=== PATIENT | female | born 1945 | race Caucasian/White ===

== ENCOUNTER → 2017-08-19 | Outpatient (CLI) | payer BC ==
[~2017-08-19] MED LIST: AMBIEN 10 MG TA10 MG PO; BENTYL 20 MG TA20 M1 PO; CARBIDOPA/LEVO1 EACH; CLONAZEPAM 1 MG1 M1 PO; COZAAR 25 MG TA25 M1 PO; DIOVAN160 MG PO; FLEXERIL; HYDROCHLOROTH12.5 M1 PO; LIPITOR 20 MG T20 M1 PO; MOBIC7.5 M1 PO; NORCO 5-325 TA1 EACH PO; NORVASC 5 MG TAB5 MG; NORVASC5 MG PO; PERCOCET 5-3251 EACH PO; PREDNISONE 10 M10 M1 PO; SINEMET 10-1001 EAC1 PO; SINEMET 25-1001 EAC1 PO; SINGULAIR 10 MG10 M1 PO; SPIRIVA18 MCG; SYMBICORT160 MCG/4.; SYMBICORT160 MCG/4. INH; ULTRAM 50MG TAB50 MG PO
== END ==
LOC: M.RAD 10:01
DX: J44.9 Chronic obstructive pulmonary disease, unspecified (principal); M41.84 Other forms of scoliosis, thoracic region

== ENCOUNTER → 2017-09-20 | Outpatient (CLI) | payer BC | LOC: M.CT 15:50 | DX: R22.31 Localized swelling, mass and lump, right upper limb (principal) ==

== ENCOUNTER → 2017-11-08 | Outpatient (CLI) | payer BC | LOC: M.RAD 11:36 | DX: M47.896 Other spondylosis, lumbar region (principal); M47.895 Other spondylosis, thoracolumbar region; M25.751 Osteophyte, right hip ==

== ENCOUNTER → 2017-11-27 | Outpatient (CLI) | payer BC ==
--- NOTE | 2017-11-28 09:37 | PAINCON ---
[address] [address] PAIN MANAGEMENT CONSULTATION Name: MAVISTATUMMALINDA L Room: [facility] ADELAIDA Darnell#: [id number] Admission: 11/27/17 Attend Phys: Spike Bird Discharge: Date of : 45 Report #: [id number] THIS REPORT FOR: //name// CC: Pranay Alegre DO Renny Gambino DATE OF SERVICE: 11/27/2017 The patient is a 72-year-old female seen in consultation at the request of Dr. Alegre for assistance with management of ongoing pain, low back, right greater than left, radiating in the posterior aspect of the leg down to the knee. She denies myelopathic symptoms, specifically a saddle anesthesia, bowel or bladder continence changes, paresthesia or weakness. She does have periodic sharp stabbing pain, she rates up to 9 on VAS. She notes the pain is exacerbated with quick movements. Gets some relief when she rests. Notes pain has been going on for greater than 8 weeks. She tried nonsteroidal anti-inflammatory medications with nominal efficacy (takes chronic meloxicam for neck pain). REVIEW OF SYSTEMS: Complete review of systems was attached to the chart, was gone over with the patient. She is . Quit smoking 20 years ago, has a 49-bfvg-pcnt smoking history. Does not drink alcohol to excess. History of COPD for which she uses Singulair and Symbicort, dyslipidemia for which she takes atorvastatin, hypertension treated with losartan and hydrochlorothiazide, hypothyroidism for which she takes levothyroxine. Restless legs syndrome, chronic pain and muscle spasm. She uses clonazepam ostensibly for muscle relaxation, tramadol for pain and carbidopa for restless legs syndrome. The patient had a brain aneurysm surgically repaired 25 years ago. Had a left first cervical rib resection at 16 years of age. Remaining review of systems is noncontributory. 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 Pain impact score averages 45/70. PHYSICAL EXAMINATION: Reveals a 5-foot 4-inch, 160-pound female, BMI is 29 kilograms per meter squared. Blood pressure 157/65, pulse 61, respirations are 16. Room air oxygen saturation 96%. Cranial nerves 2-12 are grossly intact. Pupils equal, react to light and accommodation. Extraocular muscles are intact. Cervical range of motion is full. Thyroid is modestly enlarged. Upper extremity strength is preserved. Heart is regular and rhythmical without murmur. Lungs are clear to auscultation. Abdomen is benign. Rises from chair using armrest, does have an antalgic gait. Lumbar flexion is good to 90 degrees. Tender in the low back from about L4 down. Tender over the bilateral SI joints. Modestly positive Diego test and modestly positive straight leg raise, all on the right. Lower extremity strength is symmetric. [place] [address] PAIN MANAGEMENT CONSULTATION Name: MAVISTATUMSAMMYMALINDA L Room: [facility] Mann#: [id number] Admission: 11/27/17 Attend Phys: Spike Bird Discharge: Date of : 45 Report #: [id number] DIAGNOSTIC STUDIES: X-rays of the lumbar spine from 11/08/2017 do note multilevel smje-cz-fnzukqjt degenerative disk space with mild retrolisthesis at T12 on L1, L1 on L2, L2 on L3. There is multilevel gosv-gc-iuxlpslo disk space loss T2 through L4. ASSESSMENT: Symptomatic lumbar radiculopathy by clinical exam and history, possible component of sacroiliac mediated pain. RECOMMENDATIONS: 1. We will seek authorization for epidural injection under fluoroscopy at next visit L5-S1. 2. Continue meloxicam. 3. May benefit from SI joint versus L5-S1 facet joint injections depending on clinical response to epidural injection. ASSESSMENT: Symptomatic lumbar radiculopathy, sacroiliac mediated pain, lumbar and lumbosacral spondylosis without myelopathy. <ELECTRONICALLY SIGNED> By: Renny Gambino DO 11/28/17 0937 1443 Miriam Gambino DO /nt
== END ==
LOC: M.PC 04:39
DX: M54.16 Radiculopathy, lumbar region (principal)

== ENCOUNTER → 2017-12-04 | Outpatient (CLI) | payer BC ==
--- NOTE | 2017-12-09 08:35 | PAINCON ---
[facility] [address] [place] [address] PAIN MANAGEMENT CONSULTATION Name: JACKELINMALINDA L Room: [facility] Mann#: [id number] Admission: 12/04/17 Attend Phys: Spike Bird Discharge: Date of : 45 Report #: [id number] THIS REPORT FOR: //name// CC: Pranay Gambino DATE OF SERVICE: 12/04/2017 PROCEDURE: Lumbar epidural injection under fluoroscopy. INDICATION: Symptomatic lumbar radiculopathy in a patient seen in consultation on 11/27/2017. We sought authorization for epidural injection today. She has ongoing axial back pain and lumbar radicular component. We elected to proceed with epidural injection at L5-S1 today. If this does not afford adequate relief, we can consider L5-S1 facet versus SI joint injections at that time. ASSESSMENT: Symptomatic lumbar radiculopathy. PROCEDURE NOTE: Lumbar epidural injection under fluoroscopy. PROCEDURE NOTE: After both written and informed consent to include risk of spinal cord damage, increased pain, weakness and dural puncture, the patient was taken to the fluoroscopy suite, placed in the prone position. After sterile prep and drape, a skin wheal with lidocaine was raised. A 22-gauge epidural Tuohy needle was inserted in the midline at L5-S1 with good loss to resistance. Negative aspiration for cerebrospinal fluid or blood was noted. Then 1 mL of Omnipaque under biplanar fluoroscopy showed good spread within the epidural space. This was followed with 80 mg of triamcinolone plus 1 mL of 1.5% preservative-free Xylocaine, 0.5 mL Xylocaine was then injected to flush the needle; it was removed. The patient was monitored for an appropriate period of time and discharged in good and stable condition. <ELECTRONICALLY SIGNED> By: Renny Gambino DO 12/09/17 0835 1324 [id number] Gambino DO /nt
== END | disposition home or self-care (01) ==
LOC: M.PC 03:04
DX: M54.16 Radiculopathy, lumbar region (principal); G89.29 Other chronic pain; I10 Essential (primary) hypertension; Z98.890 Other specified postprocedural states; Z79.899 Other long term (current) drug therapy; Z88.8 Allergy status to other drugs, medicaments and biological substances; Z90.49 Acquired absence of other specified parts of digestive tract

== ENCOUNTER → 2018-04-17 | Outpatient (CLI) | payer BC ==
--- NOTE | 2018-05-19 10:00 | PAINCON ---
[address] [address] PAIN MANAGEMENT CONSULTATION Name: JACKELINMALINDA L Room: [facility] ANIVAL Mann#: [id number] Admission: 04/17/18 Attend Phys: Tete Gomez MD Discharge: Date of : 45 Report #: [id number] THIS REPORT FOR: //name// CC: Tete Alegre DATE OF SERVICE: 04/17/2018 CHIEF COMPLAINT: Pain radiating down into the right leg. HISTORY OF PRESENT ILLNESS: The patient is a 72-year-old female who has been seen in the Pain Clinic by Dr. Renny Gambino. This is my first visit with the patient. She returns today indicating that she has had some success with an epidural steroid injection in the past. At this juncture, she has noted a return of her pain. Radiates from her low back down into the loop posterior portion of her right leg. She has had some bilateral pain and discomfort. Right leg is most problematic at this juncture. Notes that she received greater than 90% of pain relief after the last injection. Rates it as an 8/10. At this point, would like to proceed with another. Notes that the pain is worse with activity such as walking, sitting, and standing. Medication and massage have been helpful. ALLERGIES: CODEINE, DOXYCYCLINE, ZOLPIDEM, SLEEP WALKING, FLUTICASONE, ANY RASH. CURRENT MEDICATIONS: Lipitor 20 mg, Symbicort 160/45, Sinemet 10/100, clonazepam 1 mg, hydrochlorothiazide 12.5 mg, Cozaar 25 mg, Mobic 7.5 mg, Singulair 10 mg, Ultram 50 mg, and Ambien 10 mg. PAST SURGICAL HISTORY: Brain surgery 20 years ago 16 years ago, removal of cervical, back surgery, section. 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 REVIEW OF SYSTEMS: Generally good health, wears glasses, hearing loss, ringing in the ears, shortness of breath, heart trouble, shortness of breath while lying flat, asthma, wheezing, thyroid disease, and bruising easily. LABORATORY DATA: X-ray of lumbar spine dated 11/08/2017, there is minimal T12-L1, L1-L2, and L2-L3 retrolisthesis measuring 5 mm without change during flexion or extension. Curvature is normal. Vertebral body heights are normal. There are multilevel moderate/mild disk space loss throughout T12 through L1. There is multilevel mild endplate degeneration with small osteophytes. No acute fracture or subluxation. PAIN CLINIC ASSESSMENT: [place] [address] PAIN MANAGEMENT CONSULTATION Name: MALINDA BENÍTEZ Coty Room: [facility]#: [id number] Admission: 04/17/18 Attend Phys: Tete Gomez MD Discharge: Date of : 45 Report #: [id number] 1. The patient is not being treated for osteoarthritis. 2. The patient is not treated for rheumatoid arthritis. 3. Weight 166 pounds, BMI is 27.8. Again, the patient's height was 5 feet 4 inches. 4. Vital Signs: Blood pressure 140/81, heart rate 57, respiratory rate 16, room air saturation 98%, temperature 97.9. 5. Pain score 8/10. 6. Fall risk. The patient has not fallen in the last 3 months. 7. Blood thinner. The patient is not on a blood thinning medication. 8. Hypertension. The patient is being treated for hypertension. 9. Opiate therapy greater than 6 weeks. The patient is not on a chronic opioid medication, but does use Ultram. 10. Risk assessment tool. 11. Functional assessment tool. 12. Recreational drug use. The patient denies use of recreational drugs. 13. Tobacco: The patient denies use of tobacco at this juncture. 14. Alcohol. The patient denies frequent use of alcoholic beverages. PHYSICAL EXAMINATION: GENERAL: The patient is a well-developed, well-nourished white female appears her stated age. She is alert and oriented x 3. Affect is appropriate. Speech is fluent. HEENT: Normocephalic, atraumatic. Extraocular eye muscles intact. Sclerae nonicteric. Mucous membranes are moist. NECK: The patient's neck is without evidence of JVD or adenopathy. HEART: Regular rate. ABDOMEN: Nontender. EXTREMITIES: Upper extremity muscle strength is judged to be 4+/5 for the major muscle groups. Difficult to ascertain the patient's deep tendon reflexes secondary to a difficulty in compliance. MUSCULOSKELETAL: Without significant scoliosis, kyphosis or lordosis. The patient has pain and discomfort with pain radiating down in the L5-S1 dermatomal distribution, which is most problematic today. The patient raises from the chair with the use of her hands on the armrest. Does have an antalgic gait. Slow ambulation. Positive straight leg raise on the right. Lower extremity muscle strength is judged to be 5- for the major muscle groups in the lower extremity. IMPRESSION: 1. Multilevel mild/moderate degenerative disk space loss and endplate osteophytes. 2. Mild retrolisthesis at T12-L1, L1-L2, L2-L3 without change during flexion or extension. 3. Exacerbation of lumbar radiculopathy in the L5-S1 dermatomal distribution. 4. Rheumatic fever. 5. [place] [address] PAIN MANAGEMENT CONSULTATION Name: SAMMY BENÍTEZTRACY Ansari Room: [facility]#: [id number] Admission: 04/17/18 Attend Phys: Tete Gomez MD Discharge: Date of : 45 Report #: [id number] 6. Chronic obstructive lung disease. 7. Thyroid disease. 8. Joint disease/arthritis. 9. Irritable bowel syndrome. 10. Restless leg syndrome. RECOMMENDATIONS: We discussed treatment options with the patient. Risks and benefits of a lumbar epidural steroid injection were discussed. They could include but will not limited to infection, increased muscle soreness, headache, bleeding, worsening of pain, no improvement in pain and the patient elects to proceed. PROCEDURE NOTE: The patient was taken to the procedure area. She was assisted in getting on the examination table. Her back was sterilely prepped with a Betadine solution. Fluoroscopy using anterior, posterior as well as lateral imaging were instituted. The patient's back was sterilely prepped with Betadine. A midline approach with a right paraspinous direction of the needle was undertaken. A total of 80 mg Depo-Medrol, 40 mg triamcinolone and 2 mL of 0.25% bupivacaine was injected. The patient tolerated the procedure well. There were no complications. The patient's pain decreased to 5/10 at the time of discharge, down from 8/10. She had no complications. There was no bleeding. She will follow up in the future as needed. We would like to thank you for letting us participate in her care. We hope she continues to improve. <ELECTRONICALLY SIGNED> By: Tete Gomez MD 05/19/18 1000 [id number]. Dorian Gomez MD /nt
== END | disposition home or self-care (01) ==
LOC: M.PC 04:01
DX: M51.35 Other intervertebral disc degeneration, thoracolumbar region (principal); M43.15 Spondylolisthesis, thoracolumbar region; M25.78 Osteophyte, vertebrae; I10 Essential (primary) hypertension; J44.9 Chronic obstructive pulmonary disease, unspecified; E07.9 Disorder of thyroid, unspecified; M19.90 Unspecified osteoarthritis, unspecified site; G25.81 Restless legs syndrome; I00 Rheumatic fever without heart involvement; Z98.890 Other specified postprocedural states; Z79.899 Other long term (current) drug therapy; Z88.6 Allergy status to analgesic agent; Z88.8 Allergy status to other drugs, medicaments and biological substances

== ENCOUNTER → 2018-07-01 | Outpatient (CLI) | payer BC, MEDICARE ==
[2018-07-01 10:26] LABS: CREATININE 1.3 mg/dL (0.6-1.3)
== END ==
LOC: M.LAB 06-24 10:00 → M.CT 06-24 11:00 → M.LAB 09:59
DX: R06.02 Shortness of breath (principal); R10.9 Unspecified abdominal pain; I70.8 Atherosclerosis of other arteries; I77.1 Stricture of artery; M47.815 Spondylosis without myelopathy or radiculopathy, thoracolumbar region; Z88.5 Allergy status to narcotic agent; Z88.8 Allergy status to other drugs, medicaments and biological substances; I25.10 Atherosclerotic heart disease of native coronary artery without angina pectoris

== ENCOUNTER 2018-08-25 10:34 | Inpatient (IN) | payer BC, MEDICARE ==
[~2018-08-25] VITALS: Ht 162.6 cm; Wt 68.0 kg
[2018-08-25] MEDS ORDERED: SYNTHROID25 MC1 PO (13:29)
[2018-08-25 13:56] VITALS: BP 142/74
[2018-08-25 14:39] LABS: HEMATOCRIT 41.3 % (37.0-47.0); HEMOGLOBIN 13.9 gm/dL (12.0-15.0); MCH 31.3 pg (26.0-34.0); MCHC 33.5 g/dL (28.0-37.0); MCV 93.4 fL (80.0-100.0); MPV 7.7 fl. (7.2-11.1); RBC 4.43 mil/uL (4.20-5.00); RDW-CV 12.7 % (10.5-14.5); WBC 8.5 thou/uL (4.0-11.0)
[2018-08-25 14:56] LABS: ALBUMIN 3.6 g/dL (3.4-5.0); CREATININE 1.4 mg/dL (0.6-1.3); POTASSIUM 3.9 mmol/L (3.5-5.1); TOTAL BILIRUBIN 0.6 mg/dL (<0.1-1.0); TOTAL PROTEIN 7.2 g/dL (6.4-8.2)
--- NOTE | 2018-08-25 18:18 | NUR ---
ASSESSMENT COMPLETE. PT ADMITTED DIRECT ADMIT FROM DR VANESSA. PT HAS BEEN SOA FOR A COUPLE WEEKS, FAILED OUTPT TREATMENT. PT STARTED ON IV STEROIDS AND ABX. CXR COMPLETE. PT HAS IV PLACED BY INFUSIION IN RIGHT FA. PT REPORTS SOA WITH EXERTION PERSISTENT AND NON PROD DRY COUGH. PT STARTED ON SOFÍA PEARLS. PT IS ALERT AND ORIENTED X4. DENIES N/V. UP AD SERJIO. SEE ASSESSMENT AND VITALS FOR OTHER DETAILS. CALL LIGHT WITHIN REACH, WILL CONTINUE PLAN OF CARE.
[2018-08-25 21:00] VITALS: BP 156/53
--- NOTE | 2018-08-26 06:43 | NUR ---
PT STATES SHE SLEPT WELL. DENIES PAIN OR PROBLEMS THIS MORNING. ROOM AIR. UP AD SERJIO IN ROOM RFA SL, SOLUMEDROL GIVEN ORDERED. TESSALON PERLES GIVEN WITH GOOD RELIEF OF COUGH. AM LABS TO BE DRAWN. TO HAVE ECHO TODAY. AO X4 ABLE TO USE CALL LITE AND MAKE NEEDS KNOWN.
[2018-08-26 06:56] LABS: HEMATOCRIT 37.9 % (37.0-47.0); HEMOGLOBIN 12.8 gm/dL (12.0-15.0); MCH 31.2 pg (26.0-34.0); MCHC 33.9 g/dL (28.0-37.0); MCV 92.2 fL (80.0-100.0); MPV 7.6 fl. (7.2-11.1); NUCLEATED RBCS 0 /100WBC; PLATELET COUNT* 259 thou/uL (150-400); RBC 4.11 mil/uL (4.20-5.00); RDW-CV 12.5 % (10.5-14.5); WBC 7.8 thou/uL (4.0-11.0)
[2018-08-26 07:08] LABS: CALCIUM 9.1 mg/dL (8.5-10.1); CREATININE 1.5 mg/dL (0.6-1.3); POTASSIUM 4.4 mmol/L (3.5-5.1)
[2018-08-26 07:31] VITALS: BP 148/61
[2018-08-26 07:41] LABS: ABSOLUTE LYMPHOCYTES 1.4 thou/uL (0.8-5.3); ABSOLUTE MONOCYTES 0.2 thou/uL (0.0-1.2); ABSOLUTE NEUTROPHILS 6.2 thou/uL (1.6-8.1); METAMYELOCYTES 1 %; PLATELET ESTIMATE ADEQUATE
--- NOTE | 2018-08-26 14:46 | 2DMMODE ---
[place] [address] 2 D/M-MODE ECHOCARDIOGRAM Name: MALINDA BENÍTEZ Room: [address] IN [facility]#: [id number] Admission: 08/25/18 Attend Phys: Ramesh Castellanos, Discharge: Date of : 45 Date of Service: 08/26/18 1446 Report #: [id number] THIS REPORT FOR: //name// APPROVED REPORT Study performed: 08/26/2018 11:30:28 EXAM: Comprehensive 2D, Doppler, and color-flow Echocardiogram Patient Location: In-Patient Room #: [facility] Status: routine BSA: 1.73 HR: 58 bpm BP: 148/61 mmHg Rhythm: NSR Other Information Study Quality: Good Indications Dyspnea 2D Dimensions IVSd: 9.20 (7-11mm) LVOT Diam: 17.18 (18-24mm) LVDd: 40.23 mm PWd: 8.95 (7-11mm) LVDs: 20.67 (25-40mm) Aortic Root: 24.97 mm Volumes Left Atrial Volume (Systole) LA ESV Index: 22.30 mL/m2 Aortic Valve AoV Peak Onur.: 1.85 m/s AO Peak Gr.: 13.71 mmHg LVOT Max P.45 mmHg AO Mean Gr.: 8.53 mmHg LVOT Mean P.39 mmHg LVOT Max V: 1.62 m/s AO V2 VTI: 39.76 cm LVOT Mean V: 1.08 m/s SANTOS (VTI): 2.04 cm2 LVOT V1 VTI: 34.98 cm Mitral Valve E/A Ratio: 0.92 MV Decel. Time: 317.01 ms MV E Max Onur.: 0.77 m/[place] [address] 2 D/M-MODE ECHOCARDIOGRAM Name: MALINDA BENÍTEZ Room: [address] .R.#: [id number] Admission: 08/25/18 Attend Phys: Ramesh Castellanos, Discharge: Date of : 45 Date of Service: 08/26/18 1446 Report #: [id number] PHT: 91.93 ms MVA (PHT): 2.39 cm2 TDI E/Lateral E': 6.42 E/Medial E': 7.00 Medial E' Onur.: 0.11 m/s Lateral E' Onur.: 0.12 m/s Pulmonary Valve PV Peak Onur.: 1.28 m/s PV Peak Gr.: 6.59 mmHg Tricuspid Valve RAP Estimate: 5.00 mmHg TR Peak Gr.: 27.11 mmHg RVSP: 32.00 mmHg PA Pressure: 32.00 mmHg Left Ventricle The left ventricle is normal size. There is normal LV segmental wall motion. There is normal left ventricular wall thickness. Left ventricular systolic function is normal. The left ventricular ejection fraction is within the normal range. LVEF is 65-70%. The left ventricular diastolic function is normal. Right Ventricle The right ventricle is normal size. The right ventricular systolic function is normal. Atria The left atrium size is normal. The right atrium size is normal. Aortic Valve The aortic valve is normal in structure. No aortic regurgitation is present. There is no aortic valvular stenosis. Mitral Valve The mitral valve is normal in structure. There is no mitral valve regurgitation noted. No evidence of mitral valve stenosis. Tricuspid Valve The tricuspid valve is normal in structure. Trace tricuspid regurgitation. Mild pulmonary hypertension. Pulmonic Valve The pulmonary valve is normal in structure. There is no pulmonic [place] [address] 2 D/M-MODE ECHOCARDIOGRAM Name: MALINDA BENÍTEZ FLAQUITA Room: [address] IN [facility]#: [id number] Admission: 08/25/18 Attend Phys: Ramesh Castellanos, Discharge: Date of : 45 Date of Service: 08/26/18 1446 Report #: [id number] Great Vessels The aortic root is normal in size. IVC is normal in size and collapses >50% with inspiration. Pericardium There is no pericardial effusion. <Conclusion> Left ventricular systolic function is normal. The left ventricular ejection fraction is within the normal range. <ELECTRONICALLY SIGNED> By: Sawyer Hunt MD, [facility] 08/26/18 1446 1446 1446 Sawyer Hunt MD, FAC /INF
--- NOTE | 2018-08-26 16:12 | NUR ---
SW met with pt to complete initial assessment, introduce self, and SW role. Pt alert, oriented, pleasant. Pt lives at home with her who works outside the home. Pt is independent with mobility and ADLs. Pt did not express any dc needs at this time. SW to continue to follow.
--- NOTE | 2018-08-26 18:04 | NUR ---
ASSESSMENT COMPLETE. PT ALERT AND ORIENTED X4. PT REPORTS SHE FEELS MUCH BETTER TODAY. PT REPORTS COUGH AND SOA HAS IMPROVED. IV ROCEPHIN AND SOLUMEDROL GIVEN ORDERED. PT IS UP AD SERJIO. NO OTHER CONCERNS AT THIS TIME. SEE ASSESSMENT AND VITALS FOR OTHER DETAILS. CALL LIGHT WITHIN REACH, WILL CONTINUE PLAN OF CARE
[2018-08-26 18:07] VITALS: BP 165/64
[2018-08-26 22:45] VITALS: BP 158/60
--- NOTE | 2018-08-27 06:26 | NUR ---
PT SLEPT FAIRLY WELL OVERNIGHT. HAD COUGHING EPISODE AT HS, RT TX GIVEN AND SCHEDULED MEDS WITH FAIR RELIEF. RFA SL. ROOM AIR. MANUFACTURING LEAD COUGH PT STATES. NO LABS THIS MORNING. UP AD SERJIO IN ROOM. ABLE TO USE CALL LITE AND MAKE NEEDS KNOWN. PT HOPEFUL FOR DISCHARGE HOME IF NO FURTHER COUGHING EPISODES.
[2018-08-27 08:07] VITALS: BP 161/63
[2018-08-27] MEDS ORDERED: AUGMENTIN 875-1 EACH PO (13:46)
[2018-08-27] MEDS ORDERED: PREDNISONE 10 M10 MG PO (13:46)
[2018-08-27] MEDS ORDERED: TESSALON PERLE100 MG PO (13:53)
[2018-08-27 14:00] VITALS: BP 161/63
[2018-08-27 14:01] VITALS: BP 161/63
--- NOTE | 2018-08-27 14:20 | NUR ---
ASSESSMENT COMPLETE. PT ALERT AND ORIENTED X4. PT DENIES PAIN AND N/V. PT CONTINUES TO REPORT IMPROVEMENT IN COUGH AND SHORTNESS OF AIR. PT DISCHARGED HOME WITH PRESCRIPTIONS. DISCHARGE INSTRUCTIONS GIVEN, PT VERBALIZES UNDERSTANDING. IV TAKEN OUT WITHOUT ANY COMPLICATIONS. PT LEFT VIA WHEELCHAIR WITH NURSING STAFF TO PERSONAL VEHICLE.
[2018-08-27 14:27] VITALS: BP 161/63
== END 2018-08-27 14:10 | disposition home or self-care (01) | DRG 191 ==
LOC: M.3W 10:34
PROVIDERS: ADMIT Internal Medicine
DX: J44.0 Chronic obstructive pulmonary disease with (acute) lower respiratory infection (principal); N17.9 Acute kidney failure, unspecified; E87.1 Hypo-osmolality and hyponatremia; R06.03 Acute respiratory distress; J44.1 Chronic obstructive pulmonary disease with (acute) exacerbation; J20.9 Acute bronchitis, unspecified; I10 Essential (primary) hypertension; Z98.891 History of uterine scar from previous surgery; Z79.899 Other long term (current) drug therapy; Z88.5 Allergy status to narcotic agent

== ENCOUNTER → 2018-11-27 | Outpatient (CLI) | payer BC, MEDICARE ==
[~2018-11-27] MED LIST changes: +AUGMENTIN 875-1 EACH PO; +INHALER; +ONDANSETRON HCL4 M2 PO; +PREDNISONE 10 M10 MG PO; +SYNTHROID25 MC1 PO; +TESSALON PERLE100 MG PO
--- NOTE | ~2018-11-27 | PAINCON ---
[address] [address] PAIN MANAGEMENT CONSULTATION Name: JACKELINMALINDATRACY SAMS Room: [facility] ADELAIDA Darnell#: [id number] Admission: 11/27/18 Attend Phys: Tete Gomez MD Discharge: Date of : 45 Report #: [id number] THIS REPORT FOR: //name// CC: Tete Alegre DATE OF SERVICE: 11/27/2018 CHIEF COMPLAINT: Low back pain. HISTORY: The patient is a 73-year-old female who has been seen in the pain clinic in the past because of pain. She has had pain, which radiated down into her right leg. She has undergone epidural steroid injections. At this juncture, she is having pain that is equally causing the problem with both legs. She does feel that the left leg might be more problematic than the right. She is experiencing tingling sensation down in her leg involving her foot. She has undergone chiropractic treatment. She has had acupuncture treatment. Neither of these have been helpful for a prolonged period of time. She is also experiencing some sharp pains. Rates her pain as a 3/10. She has tried tramadol as well as other muscle relaxants. She has returned today for an epidural steroid injection. Claim gleaned greater than 50% improvement at the last injection. ALLERGIES: CODEINE, DOXYCYCLINE; ZOLPIDEM, IT CAUSE SLEEP WALKING; FLUTICASONE RASH. CURRENT MEDICATIONS: Augmentin daily, Lipitor 20 mg, Tessalon Perles 100 mg q. 6 hours p.r.n. cough; Sinemet 10/100 mg, restless leg; clonazepam, anxiety, 1 mg; Synthroid 25 mcg, Cozaar 25 mg, Mobic 7.5, Singulair 10 mg, tramadol 50 mg, Ambien 10 mg p.r.n. insomnia. PAIN CLINIC ASSESSMENT AND PQRS: 1. The patient is not being treated for osteoarthritis or rheumatoid arthritis. 2. She has had her left knee debrided. Height 5 feet 5 inches, weight 165 pounds, BMI is 27. 3. Vital Signs: Blood pressure 102/58, heart rate 66, respiratory rate 16, room air saturation 93%, temperature 98.0. 4. Pain intensity 3/10. The patient rates her pain as a 2 with no activity, 3 when walking and 10 with certain activities. 5. Fall history: The patient has not fallen in the last 3 months. 6. Blood thinner. The patient is not on a blood thinning medication. 7. Hypertension. The patient is being treated for hypertension. 8. Opioids greater than 6 weeks. The patient is not receiving with opioid medications greater than 6 weeks. 9. Risk assessment tool. 10. Functional assessment tool, [place] [address] PAIN MANAGEMENT CONSULTATION Name: MALINDA BENÍTEZ FLAQUITA Room: [facility]#: [id number] Admission: 11/27/18 Attend Phys: Tete Gomez MD Discharge: Date of : 45 Report #: [id number] 11. Recreational drug use. The patient denies use of recreational drugs. 12. Tobacco: The patient denies use of tobacco. 13. Alcohol: The patient drinks alcoholic beverages on occasion. PHYSICAL EXAMINATION: GENERAL: The patient is a well-developed, well-nourished white female. Appears her stated age. She is alert and oriented x 3. Her affect is appropriate. Speech is fluent. HEENT: Normocephalic, atraumatic. Extraocular eye muscles intact. Sclerae nonicteric. Mucous membranes are moist. NECK: Without adenopathy or JVD. HEART: Regular rate. ABDOMEN: Nontender. EXTREMITIES: Upper extremity muscle strength judged to be 4+/5 for the major muscle groups in the upper extremity. The patient without significant scoliosis, kyphosis or lordosis. Complains of pain that is radiating down into her leg in the L5-S1 dermatomal distribution. Risks and benefits of the procedure were discussed. They could include but are not limited to infection, worsening of pain, no improvement in pain, spinal headache, paralysis and the patient elects to undertake the procedure. PROCEDURE NOTE: The patient was taken to the procedure area. She was then assisted in getting on the examination table. Her back was sterilely prepped with a Betadine solution at the L5-S1 area. A 0.25% bupivacaine using a 25-gauge needle was then used to localize and numb the area. A 17-gauge Tuohy with loss of resistance technique was used to gain access to the epidural space. There was no CSF, heme or paresthesia. Total of 80 mg of Depo-Medrol, 40 mg of triamcinolone and 2 mL of 0.25% bupivacaine was injected. The patient tolerated the procedure well. There were no complications. She remained in the Pain Clinic for an appropriate amount of time. Pain decreased to 3 at the time of discharge. A total of 9 seconds of fluoroscopy time was used. She will follow up in the future as needed. We would like to thank you for letting us participate in her care. We hope she continues to improve. By: [id number]. Dorian Gomez MD /PMT
== END | disposition home or self-care (01) ==
LOC: M.PC 04:21
DX: M54.16 Radiculopathy, lumbar region (principal); G89.29 Other chronic pain; I10 Essential (primary) hypertension; J44.9 Chronic obstructive pulmonary disease, unspecified; F41.9 Anxiety disorder, unspecified; Z88.6 Allergy status to analgesic agent; Z88.8 Allergy status to other drugs, medicaments and biological substances; Z79.899 Other long term (current) drug therapy; Z98.890 Other specified postprocedural states

== ENCOUNTER 2018-12-01 17:13 | Emergency (ER) | payer BC, MEDICARE ==
[~2018-12-01] VITALS: Ht 162.6 cm; Wt 73.0 kg
[~2018-12-01 17:13] MED LIST changes: -INHALER; -ONDANSETRON HCL4 M2 PO
[2018-12-01] MEDS ORDERED: INHALER (17:25)
[2018-12-01 17:48] LABS: HEMATOCRIT 43.3 % (37.0-47.0); HEMOGLOBIN 14.8 gm/dL (12.0-15.0); MCH 31.1 pg (26.0-34.0); MCHC 34.2 g/dL (28.0-37.0); MPV 7.9 fl. (7.2-11.1); NUCLEATED RBCS 0 /100WBC; PLATELET COUNT* 235 thou/uL (150-400); RBC 4.76 mil/uL (4.20-5.00); RDW-CV 13.5 % (10.5-14.5); WBC 11.2 thou/uL (4.0-11.0)
[2018-12-01 18:06] LABS: ALBUMIN 3.8 g/dL (3.4-5.0); ALKALINE PHOSPHATASE 76 U/L (46-116); ANION GAP 6 mmol/L (7-16); BUN 32 mg/dL (7-18); CHLORIDE 104 mmol/L (98-107); CO2 31 mmol/L (21-32); CREATININE 1.3 mg/dL (0.6-1.3); GLUCOSE 102 mg/dL (70-99); LIPASE 272 U/L (73-393); POTASSIUM 3.9 mmol/L (3.5-5.1); SGOT 15 U/L (15-37); SGPT 17 U/L (30-65); SODIUM 141 mmol/L (136-145); TOTAL BILIRUBIN 0.8 mg/dL (<0.1-1.0); TOTAL PROTEIN 7.4 g/dL (6.4-8.2); TROPONIN-I LEVEL <0.06 ng/mL (<0.06)
[2018-12-01 18:16] LABS: ABSOLUTE LYMPHOCYTES 0.1 thou/uL (0.8-5.3); ABSOLUTE MONOCYTES 0.8 thou/uL (0.0-1.2); ABSOLUTE NEUTROPHILS 10.3 thou/uL (1.6-8.1); PLATELET ESTIMATE ADEQUATE
[2018-12-01] MEDS ORDERED: NORCO 5-325 TA1 EACH PO (19:03)
[2018-12-01] MEDS ORDERED: ONDANSETRON HCL4 M2 PO (19:03)
[2018-12-01 19:14] VITALS: BP 181/63
--- NOTE | 2018-12-02 10:40 | EKG ---
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
== END 2018-12-01 19:15 | disposition home or self-care (01) ==
LOC: M.ERS 17:13
PROVIDERS: Nurse Practitioner Family
DX: R10.10 Upper abdominal pain, unspecified (principal); R14.0 Abdominal distension (gaseous); J44.9 Chronic obstructive pulmonary disease, unspecified; I10 Essential (primary) hypertension; Z90.49 Acquired absence of other specified parts of digestive tract; Z98.890 Other specified postprocedural states; Z88.5 Allergy status to narcotic agent

== ENCOUNTER → 2019-03-03 | Outpatient (CLI) | payer BC, MEDICARE ==
[~2019-03-03] MED LIST changes: +INHALER; +ONDANSETRON HCL4 M2 PO
--- NOTE | ~2019-03-03 | PAINCON ---
[address] [address] PAIN MANAGEMENT CONSULTATION Name: JACKELINMALINDATRACY SAMS Room: [facility]Radha.#: [id number] Admission: 03/03/19 Attend Phys: Tete Gomez MD Discharge: Date of : 45 Report #: [id number] THIS REPORT FOR: //name// CC: Tete Alegre DATE OF SERVICE: 03/03/2019 CHIEF COMPLAINT: Low back pain with pain radiating down into the legs. HISTORY: The patient is a 73-year-old female who has been seen in the pain clinic because of lumbar radiculopathy. She returns today indicating that her pain has reoccurred. She has undergone epidural steroid injections and found them to be quite beneficial. She has returned today because of the recurrence of the pain and discomfort. She notes that she hurts in her hips as well as "everywhere." Has pain that is radiating down into the L5-S1 dermatomal distribution. She notes that her pain is bothersome. She even has pain when she is trying to roll over in bed. This wakes her. Walking, activities of daily living and bending can be problematic. ALLERGIES: CODEINE, DOXYCYCLINE, ZOLPIDEM -- it causes sleep walking, FLUTICASONE -- rash. MEDICATIONS: Augmentin, daily, Lipitor 20 mg, Tessalon Perles 100 mg q. 6 hours p.r.n. cough, Sinemet 10/100 mg, restless leg syndrome, clonazepam, anxiety 1 mg; Synthroid 25 mcg, Cozaar 25 mg, Mobic 7.5 mg, Singulair 10 mg, tramadol 50 mg, and Ambien 10 mg p.r.n. for insomnia. PAIN CLINIC ASSESSMENT/PQRS: 1. The patient has had her left knee debrided. She suffers from osteoarthritis. She is not being treated for rheumatoid arthritis. 2. Height 5 feet 5 inches, weight 161 pounds, BMI is 27.0. 3. VITAL SIGNS: Blood pressure 135/53, heart rate 63, respiratory rate 16, room air saturation 95%, temperature 97.9. 4. Pain intensity 8/10. 5. Fall history: The patient has not fallen in the last 3 months. 6. Blood thinner. The patient is not on a blood thinning medication. 7. Hypertension. The patient is being treated for hypertension. 8. Opioids greater than 6 weeks. The patient is not receiving opioid medications other than tramadol. 9. Risk assessment tool, low for opioid use. 10. Functional assessment tool. 11. Recreational drug use. The patient denies use of recreational drugs. 12. Tobacco: The patient denies use of tobacco. 13. Alcohol: The patient drinks alcoholic [place] [address] PAIN MANAGEMENT CONSULTATION Name: MALINDA BENÍTEZ FLAQUITA Room: [facility]#: [id number] Admission: 03/03/19 Attend Phys: Tete Gomez MD Discharge: Date of : 45 Report #: [id number] PHYSICAL EXAMINATION: GENERAL: The patient is a well-developed, well-nourished white female. Appears her stated age. She is alert and oriented x 3. Her affect is appropriate. Speech is fluent. HEENT: Normocephalic, atraumatic. Extraocular eye muscles intact. Sclerae nonicteric. Mucous membranes are moist. NECK: Without adenopathy or JVD. HEART: Regular rate. ABDOMEN: Nontender. EXTREMITIES: Upper extremity muscle strength judged to be 4+/5 for the major muscle groups in the upper extremity. The patient is without significant scoliosis, kyphosis or lordosis. The patient complains of pain that is radiating down to her leg in the L5-S1 dermatomal distribution. IMPRESSION: Lumbar radiculopathy. RECOMMENDATIONS: We discussed treatment options with the patient. Risks and benefits of an epidural steroid injection were discussed. They could include but are not limited to infection, worsening pain, no improvement in pain, spinal headache, nerve damage and the patient elects to proceed. PROCEDURE NOTE: The patient was taken to the procedure area. She was then assisted in getting on the examination table. Her back was sterilely prepped with a Betadine solution. Fluoroscopy using anterior, posterior as well as lateral viewing were implemented. The patient's back had been sterilely prepped with a Betadine solution. A 0.25% bupivacaine using a 25-gauge needle was then used to infiltrate the L5-S1 area. A 17-gauge Tuohy in the L5-S1 area was then used to gain access to the epidural space. There was no CSF, heme or paresthesia. A total of 80 mg Depo-Medrol, 40 mg triamcinolone and 2 mL of 0.25% bupivacaine was injected. The patient tolerated the procedure well. There were no complications. She remained in the Pain Clinic for an appropriate amount of time. A total of 10 seconds fluoroscopy time was used. The patient's pain decreased to 6 at the time of discharge and she described as much better. She will follow up in the future as needed. We would like to thank you for letting us participate in her care. We hope she continues to improve. By: [id number]. MD sylvain Wahl
== END | disposition home or self-care (01) ==
LOC: M.PC 05:02
DX: M54.16 Radiculopathy, lumbar region (principal); M19.90 Unspecified osteoarthritis, unspecified site; I10 Essential (primary) hypertension; J44.9 Chronic obstructive pulmonary disease, unspecified; Z88.8 Allergy status to other drugs, medicaments and biological substances; Z79.899 Other long term (current) drug therapy

== ENCOUNTER → 2019-05-19 | Outpatient (CLI) | payer BC, MEDICARE ==
--- NOTE | 2019-05-27 09:09 | PAINCON ---
[address] [address] PAIN MANAGEMENT CONSULTATION Name: MALINDA BENÍTEZ FLAQUITA Room: [facility].Radha.#: [id number] Admission: 05/19/19 Attend Phys: Tete Gomez MD Discharge: Date of : 45 Report #: [id number] THIS REPORT FOR: //name// CC: Tete Alegre DO DATE OF SERVICE: 05/19/2019 PRIMARY CARE PHYSICIAN: Pranay Alegre MD CHIEF COMPLAINT: Here for another epidural injection. HISTORY OF PRESENT ILLNESS: The patient is a 73-year-old female who has been seen in the pain clinic because of lumbar radiculopathy. She has undergone epidural steroid injections in the past. These have been beneficial. She returned today indicating that her pain had improved after the last injection. She rates her pain as about 4-5/10. She fell about 3 months ago and injured her left-sided rotator cuff. States that there was a meniscus which was torn. She is thinking about having this surgerized in a few months. Most of her pain involves her right side. The left side is less problematic. Noted with stretching while lying on the bed, she notes increasing pain and discomfort which radiates down into her leg. Pain is most problematic on the right hip. She would like to proceed with another epidural steroid injection today. Had no complications from the past injection. ALLERGIES: CODEINE; DOXYCYCLINE; ZOLPIDEM, CAUSED SLEEPWALKING; FLUTICASONE, RASH. CURRENT MEDICATIONS: Augmentin daily; Lipitor 20 mg; Tessalon Perles 100 mg q. 6 hours p.r.n. cough; Sinemet 10/100 for restless leg syndrome; clonazepam, anxiety 1 mg; Synthroid 25 mcg; Cozaar 25 mg; Mobic 7.5 mg; Singulair 10 mg; tramadol 50 mg; Ambien 10 mg for insomnia. PAIN CLINIC ASSESSMENT/PQRS: 1. The patient has some problems with her left knee. She has undergone knee debridement. She suffers from osteoarthritis. She is not being treated for rheumatoid arthritis. 2. Height 5 feet 5 inches, weight 160 pounds, BMI is 26.6. 3. Vital signs: Blood pressure is 129/64, heart rate 80, respiratory rate 16, room air saturation 95%, temperature 98.2. 4. Pain intensity 8/10. 5. Fall history: The patient has not fallen in the last 3 months. 6. Blood thinner. The patient is not on a blood thinning medication. 7. Hypertension. The patient is not being treated for hypertension. 8. Opioids greater than 6 weeks. The patient [place] [address] PAIN MANAGEMENT CONSULTATION Name: MALINDA BENÍTEZ Room: [facility]#: [id number] Admission: 05/19/19 Attend Phys: Tete Gomez MD Discharge: Date of : 45 Report #: [id number] medication, but is using tramadol. 9. Risk assessment tool, low for opioid use. 10. Functional assessment tool. 11. Recreational drug use, the patient denies. 12. Tobacco: The patient denies. 13. Alcohol: The patient rarely drinks alcoholic beverages. PHYSICAL EXAMINATION: GENERAL: The patient is a well-developed, well-nourished, white female, appears her stated age. She is alert and oriented x 3. Her affect is appropriate. Speech is fluent. HEENT: Normocephalic, atraumatic. Extraocular eye muscles intact. Sclerae nonicteric. Mucous membranes are moist. NECK: Without adenopathy or JVD. HEART: Regular rate. ABDOMEN: Nontender. Bowel sounds present. EXTREMITIES: Upper extremity muscle strength judged to be 4+/5 for the major muscle groups in the upper extremity. The patient is without significant scoliosis, kyphosis or lordosis. Has some pain and discomfort in the right shoulder area. Lumbar radiculopathy in the L5-S1 distribution. IMPRESSION: 1. Lumbar radiculopathy. 2. Rotator cuff injury on the left side. RECOMMENDATIONS: We discussed treatment options with the patient. Risks and benefits of an epidural steroid injection were discussed. They include but are not limited to infection, worsening pain, no improvement in pain, spinal headache, nerve damage and the patient elects to proceed. PROCEDURE NOTE: The patient was taken to the procedure area. She was then assisted in getting on examination table. Her back was sterilely prepped with a Betadine solution. Fluoroscopy using anterior and posterior as well as lateral viewing were implemented. A 0.5% bupivacaine solution was injected using a 25-gauge needle at the L5-S1 area using a midline approach. There was no CSF, heme or paresthesia after a 17-gauge Tuohy with loss of resistance technique was then advanced at the L5-S1 area. A total of 80 mg Depo-Medrol, 40 mg triamcinolone and 2 mL of 0.25% bupivacaine was injected. The patient tolerated the procedure well. There were no complications. Her pain score was 0 at the time of discharge. She will follow up in [place] [address] PAIN MANAGEMENT CONSULTATION Name: MALINDA BENÍTEZ Room: [facility]#: [id number] Admission: 05/19/19 Attend Phys: Tete Gomez MD Discharge: Date of : 45 Report #: [id number] We would like to thank you for letting us participate in her care. We hope she continues to improve. <ELECTRONICALLY SIGNED> By: Tete Gomez MD 05/27/19 0909 [id number] 1527N. Dorian Gomez MD /nt
== END | disposition home or self-care (01) ==
LOC: M.PC 05:46
DX: M54.16 Radiculopathy, lumbar region (principal); G89.29 Other chronic pain; M17.12 Unilateral primary osteoarthritis, left knee; J44.9 Chronic obstructive pulmonary disease, unspecified; Z98.890 Other specified postprocedural states; Z79.899 Other long term (current) drug therapy; Z88.6 Allergy status to analgesic agent; Z88.8 Allergy status to other drugs, medicaments and biological substances

== ENCOUNTER → 2019-07-09 | Outpatient (CLI) | payer BC, MEDICARE ==
--- NOTE | ~2019-07-09 | PAINCON ---
[address] [address] PAIN MANAGEMENT CONSULTATION Name: MALINDA BENÍTEZ FLAQUITA Room: [facility] Mann#: [id number] Admission: 07/09/19 Attend Phys: Tete Gomez MD Discharge: Date of : 45 Report #: [id number] THIS REPORT FOR: //name// CC: Tete Alegre DO DATE OF SERVICE: 07/09/2019 CHIEF COMPLAINT: "Pain down the back and I am having trouble turning over in bed." HISTORY OF PRESENT ILLNESS: The patient is a 73-year-old female, who has been seen in the pain clinic because of lumbar radiculopathy. She has undergone epidural steroid injections and found them beneficial. She returns today indicating that she is having pain in her right hip. It involves the low back area and radiates down into her buttocks. She has had pain over a number of years. She has returned today with the hopes of undergoing an epidural steroid injection. She did fall after the last injection, fell 3 days after the last injection, rates her pain today as an 8/10, has been using tramadol and Mobic, notes that her pain is worse when she is climbing stairs, sitting as well as with the activity. ALLERGIES: CODEINE, DOXYCYCLINE, ZOLPIDEM -- CAUSE SLEEP WALKING, FLUTICASONE-- RASH. CURRENT MEDICATIONS: Lipitor 20 mg daily, carbidopa/levodopa for the restless legs b.i.d. 1 tablet, clonazepam 1 mg, anxiety, Synthroid 25 mcg, Mobic 15 mg daily, tramadol 50 mg 1-2 tablets every 4-6 hours p.r.n. and an inhaler. PAIN CLINIC ASSESSMENT/PQRS: 1. The patient has some problems with her left knee. She has undergone knee debridement. She suffers from osteoarthritis. She is not being treated for rheumatoid arthritis. 2. Height 5 feet 5 inches, weight 160 pounds, BMI is 27.0. 3. Vital signs: Blood pressure of 140/74, heart rate 66, respiratory rate 16, room air saturation 94%, temperature 97.8. 4. Pain intensity 10. 5. The patient has not fallen in the last 3 months. 6. Blood thinner. The patient is not on a blood thinning medication. 7. Hypertension. The patient is not being treated for hypertension. 8. Opioids greater than 6 weeks. The patient is not on opioid medication on a regular basis. She does take tramadol. 9. Risk assessment tool, low for opioid use. 10. Functional assessment tool reviewed. 11. Recreational drug use: [place] [address] PAIN MANAGEMENT CONSULTATION Name: MALINDA BENÍTEZ Room: [facility]#: [id number] Admission: 07/09/19 Attend Phys: Tete Gomez MD Discharge: Date of : 45 Report #: [id number] 12. Tobacco: The patient denies. 13. Alcohol: The patient rarely drinks alcoholic beverages. PHYSICAL EXAMINATION: GENERAL: The patient is a well-developed, well-nourished white female. Appears her stated age. She is alert and oriented x 3. Her affect is appropriate. Speech is fluent. HEENT: Normocephalic, atraumatic. Extraocular eye muscles intact. Sclerae nonicteric. Mucous membranes are moist. NECK: Without adenopathy or JVD. HEART: Regular rate. ABDOMEN: Nontender. MUSCULOSKELETAL: Upper extremity muscle strength judged to be 4+/5 for the major muscle groups in the upper extremity. The patient has pain and discomfort in the lower portion of her back. She moves in a very slow and antalgic gait, has a somewhat hopping motion to her walk, needs some assistance in getting from the floor to the bed, notes increased pain and discomfort when she turns her body to get on the examination table, has pain, which is most problematic on the left leg, but some in the low back and left leg. IMPRESSION: 1. Lumbar radiculopathy. 2. Restless leg syndrome. 3. Hypothyroidism. 4. Hypercholesterolemia. RECOMMENDATIONS: We discussed treatment options with the patient. Risks and benefits of an epidural steroid injection were again discussed. Possible complications of the procedure were reviewed. They could include but are not limited to infection, worsening pain, no improvement in pain, and the patient elects to proceed. PROCEDURE NOTE: The patient was taken to the procedure area. She was assisted in getting on examination table. A pillow was placed under the abdomen to bolster and improve positioning. The patient's back was sterilely prepped with a Betadine solution and allowed to dry. A 0.25% bupivacaine was infiltrated into this area at the L5-S1 area. A 17-gauge Tuohy with the loss of resistance technique was used to gain access to the epidural space. There was no CSF, heme, or paresthesia. Total of 80 mg of Depo-Medrol, 40 mg of triamcinolone, and 2 mL of 0.25% bupivacaine was injected. The patient tolerated the procedure well. A total of 10 second fluoroscopy time was used. She remained in the Pain Clinic for an appropriate amount of time. She will follow up in the future as needed. [place] [address] PAIN MANAGEMENT CONSULTATION Name: MALINDA BENÍTEZ Room: [facility]LA[facility] BainR.#: [id number] Admission: 07/09/19 Attend Phys: Tete Gomez MD Discharge: Date of : 45 Report #: [id number] We would like to thank you for letting us participate in her care. We hope she continues to improve. By: 1305 2250N. Dorian Gomez MD /nt
== END | disposition home or self-care (01) ==
LOC: M.PC 04:57
DX: M54.16 Radiculopathy, lumbar region (principal); G89.29 Other chronic pain; E78.00 Pure hypercholesterolemia, unspecified; E03.9 Hypothyroidism, unspecified; J44.9 Chronic obstructive pulmonary disease, unspecified; Z98.890 Other specified postprocedural states; Z79.899 Other long term (current) drug therapy; Z88.8 Allergy status to other drugs, medicaments and biological substances

== ENCOUNTER 2019-08-26 18:11 | Emergency (ER) | payer BC, MEDICARE ==
[~2019-08-26] VITALS: Ht 162.6 cm; Wt 72.6 kg
[2019-08-26] MEDS ORDERED: TRELEGY ELLIPT1 EACH (18:27)
[2019-08-26] MEDS ORDERED: LEVO-T25 MCG PO (18:28)
[2019-08-26] MEDS ORDERED: LOSARTAN-HCTZ1 EAC3 PO (18:28)
[2019-08-26] MEDS ORDERED: HYDROCHLOROTHIA25 M2 PO (18:28)
[2019-08-26] MEDS ORDERED: LIPITOR 20 MG T20 M1 PO (18:28)
[2019-08-26] MEDS ORDERED: REQUIP 1 MG TABL1 M1 PO (18:29)
[2019-08-26] MEDS ORDERED: CLONAZEPAM 0.50.5 M1 PO (18:29)
[2019-08-26] MEDS ORDERED: ULTRAM50 MG PO (18:29)
[2019-08-26] MEDS ORDERED: ZANAFLEX4 M1 PO (18:29)
[2019-08-26 19:02] LABS: ABSOLUTE EOSINOPHILS 0.1 thou/uL (0.0-0.7); ABSOLUTE LYMPHOCYTES 0.7 thou/uL (0.8-5.3); ABSOLUTE MONOCYTES 1.3 thou/uL (0.0-1.2); ABSOLUTE NEUTROPHILS 10.1 thou/uL (1.6-8.1); BASOPHILS 0.2 %; EOSINOPHILS 1.1 %; HEMATOCRIT 40.8 % (37.0-47.0); LYMPHOCYTES 5.6 %; MCH 31.2 pg (26.0-34.0); MCHC 34.4 g/dL (28.0-37.0); MCV 90.9 fL (80.0-100.0); MONOCYTES 10.4 %; MPV 7.3 fl. (7.2-11.1); NUCLEATED RBCS 0 /100WBC; PLATELET COUNT* 315 thou/uL (150-400); POLYS 82.7 %; RBC 4.48 mil/uL (4.20-5.00); RDW-CV 13.2 % (10.5-14.5); WBC 12.2 thou/uL (4.0-11.0)
[2019-08-26 19:15] LABS: CALCIUM 8.5 mg/dL (8.5-10.1); CREATININE 1.2 mg/dL (0.6-1.3)
[2019-08-26 19:25] LABS: ALBUMIN 3.2 g/dL (3.4-5.0); TOTAL BILIRUBIN 0.5 mg/dL (<0.1-1.0); TOTAL PROTEIN 7.1 g/dL (6.4-8.2)
[2019-08-26 21:02] LABS: INFLUENZA A ANTIGEN Positive (Negative); INFLUENZA B ANTIGEN Negative (Negative)
[2019-08-26] MEDS ORDERED: TAMIFLU75 MG PO (21:33)
[2019-08-26] MEDS ORDERED: IPRAT-ALBUT 0.5-3 ML INH (21:33)
[2019-08-26] MEDS ORDERED: MEDROLDOSEPACK PO (21:33)
[2019-08-26 21:46] VITALS: BP 122/49
--- NOTE | 2019-08-27 09:23 | EKG ---
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 08/27/19921 37 37 Sawyer Hunt MD, FAC /EPI
== END 2019-08-26 21:47 | disposition home or self-care (01) ==
LOC: M.ERS 18:11
PROVIDERS: Emergency Medicine
DX: J44.9 Chronic obstructive pulmonary disease, unspecified (principal); I10 Essential (primary) hypertension; Z90.49 Acquired absence of other specified parts of digestive tract; Z98.890 Other specified postprocedural states; Z88.5 Allergy status to narcotic agent

== ENCOUNTER 2019-09-08 12:36 | Inpatient (IN) | payer BC, MEDICARE ==
[~2019-09-08] VITALS: Ht 152.4 cm; Wt 71.2 kg
--- NOTE | ~2019-09-08 | EKG ---
[place] [address] ELECTROCARDIOGRAM REPORT Name: SAMMY BENÍTEZTRACY SAMS Room: [facility]#: [id number] Admission: 09/08/19 Attend Phys: Discharge: Date of : 45 Date of Service: 09/08/19 1301 Report #: [id number] THIS REPORT FOR: cc: Pranay Alegre Steve T. 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
[~2019-09-08 12:36] MED LIST changes: +CLONAZEPAM 0.50.5 M1 PO; +HYDROCHLOROTHIA25 M2 PO; +IPRAT-ALBUT 0.5-3 ML INH; +LEVO-T25 MCG PO; +LOSARTAN-HCTZ1 EAC3 PO; +MEDROLDOSEPACK PO; +REQUIP 1 MG TABL1 M1 PO; +TAMIFLU75 MG PO; +TRELEGY ELLIPT1 EACH; +ULTRAM50 MG PO; +ZANAFLEX4 M1 PO
[2019-09-08 12:42] VITALS: BP 146/66
[2019-09-08 13:12] LABS: ABSOLUTE BASOPHILS 0.1 thou/uL (0.0-0.2); ABSOLUTE EOSINOPHILS 0.1 thou/uL (0.0-0.7); ABSOLUTE LYMPHOCYTES 0.7 thou/uL (0.8-5.3); ABSOLUTE MONOCYTES 1.4 thou/uL (0.0-1.2); ABSOLUTE NEUTROPHILS 11.9 thou/uL (1.6-8.1); BASOPHILS 0.5 %; EOSINOPHILS 0.5 %; HEMATOCRIT 37.5 % (37.0-47.0); HEMOGLOBIN 12.9 gm/dL (12.0-15.0); LYMPHOCYTES 4.8 %; MCH 31.2 pg (26.0-34.0); MCHC 34.4 g/dL (28.0-37.0); MCV 90.8 fL (80.0-100.0); MPV 8.2 fl. (7.2-11.1); NUCLEATED RBCS 0 /100WBC; PLATELET COUNT* 191 thou/uL (150-400); POLYS 84.2 %; RBC 4.13 mil/uL (4.20-5.00); RDW-CV 13.4 % (10.5-14.5); WBC 14.2 thou/uL (4.0-11.0)
[2019-09-08 13:23] LABS: APTT 22.9 Seconds (25.0-31.3); CALCIUM 8.8 mg/dL (8.5-10.1); CREATININE 1.4 mg/dL (0.6-1.3); POTASSIUM 3.6 mmol/L (3.5-5.1); PROTIME 10.7 Seconds (9.20-11.50)
[2019-09-08 13:35] LABS: ALBUMIN 3.2 g/dL (3.4-5.0); TOTAL BILIRUBIN 1.1 mg/dL (<0.1-1.0); TOTAL PROTEIN 7.2 g/dL (6.4-8.2)
[2019-09-08 16:29] LABS: INFLUENZA A ANTIGEN Negative (Negative); INFLUENZA B ANTIGEN Negative (Negative)
[2019-09-08 17:36] VITALS: BP 115/46
[2019-09-08 18:00] VITALS: BP 116/44
[2019-09-08 19:57] VITALS: BP 96/42
[2019-09-08] MEDS ORDERED: VITAMIN D32000 UNI2 PO (20:41)
[2019-09-09] VITALS: BP 103/46
[2019-09-09 04:00] VITALS: BP 91/35
[2019-09-09 08:00] VITALS: BP 102/47
[2019-09-09 09:52] LABS: HEMATOCRIT 33.3 % (37.0-47.0); HEMOGLOBIN 11.9 gm/dL (12.0-15.0); MCH 31.7 pg (26.0-34.0); MCHC 35.6 g/dL (28.0-37.0); MCV 89.1 fL (80.0-100.0); MPV 8.3 fl. (7.2-11.1); NUCLEATED RBCS 0 /100WBC; PLATELET COUNT* 169 thou/uL (150-400); RBC 3.74 mil/uL (4.20-5.00); RDW-CV 13.1 % (10.5-14.5); WBC 9.6 thou/uL (4.0-11.0)
[2019-09-09 10:02] LABS: CREATININE 1.3 mg/dL (0.6-1.3); POTASSIUM 3.5 mmol/L (3.5-5.1)
[2019-09-09 10:34] LABS: ABSOLUTE LYMPHOCYTES 0.3 thou/uL (0.8-5.3); ABSOLUTE MONOCYTES 0.4 thou/uL (0.0-1.2); ABSOLUTE NEUTROPHILS 8.9 thou/uL (1.6-8.1)
[2019-09-09 10:35] LABS: PLATELET ESTIMATE ADEQUATE; TOXIC GRANULATION 1+
[2019-09-09 11:47] VITALS: BP 116/77
[2019-09-09 16:00] VITALS: BP 146/69
[2019-09-09 20:00] VITALS: BP 109/48
[2019-09-10 00:55] VITALS: BP 103/43
[2019-09-10 04:00] VITALS: BP 108/40
[2019-09-10 07:50] VITALS: BP 110/41
[2019-09-10] MEDS ORDERED: PROTONIX40 M1 PO (11:49)
[2019-09-10] MEDS ORDERED: CEFDINIR300 MG PO (11:49)
[2019-09-10] MEDS ORDERED: PREDNISONE 10 M10 MG PO (11:49)
[2019-09-10 12:08] VITALS: BP 113/36
[2019-09-10 12:56] VITALS: BP 113/36
== END 2019-09-10 14:50 | disposition home or self-care (01) | DRG 177 ==
LOC: M.ERS 12:36 → M.2W 15:15 → M.TBA-ER 15:15 → M.2W 17:57
PROVIDERS: Family Medicine; ADMIT Internal Medicine
DX: J15.6 Pneumonia due to other Gram-negative bacteria (principal); J96.01 Acute respiratory failure with hypoxia; J44.1 Chronic obstructive pulmonary disease with (acute) exacerbation; J44.0 Chronic obstructive pulmonary disease with (acute) lower respiratory infection; M19.91 Primary osteoarthritis, unspecified site; M54.30 Sciatica, unspecified side; I10 Essential (primary) hypertension; Z90.49 Acquired absence of other specified parts of digestive tract; Z88.6 Allergy status to analgesic agent; Z87.891 Personal history of nicotine dependence; Z79.899 Other long term (current) drug therapy

== ENCOUNTER 2019-09-24 13:53 | Emergency (ER) | payer BC, MEDICARE ==
[~2019-09-24] VITALS: Ht 162.6 cm; Wt 68.0 kg
[~2019-09-24 13:53] MED LIST changes: +CEFDINIR300 MG PO; +PROTONIX40 M1 PO; +VITAMIN D32000 UNI2 PO
[2019-09-24] MEDS ORDERED: [UNRECOGNIZED DRUG - OTHER] (14:12)
[2019-09-24] MEDS ORDERED: PERCOCET 5-3251 EACH PO (14:35)
[2019-09-24 15:32] VITALS: BP 110/45
== END 2019-09-24 15:33 | disposition home or self-care (01) ==
LOC: M.ERS 13:53
DX: M17.0 Bilateral primary osteoarthritis of knee (principal); J44.9 Chronic obstructive pulmonary disease, unspecified; I10 Essential (primary) hypertension; Z98.890 Other specified postprocedural states; Z88.5 Allergy status to narcotic agent; Z90.49 Acquired absence of other specified parts of digestive tract

== ENCOUNTER → 2019-10-08 | Outpatient (CLI) | payer BC, MEDICARE ==
[~2019-10-08] MED LIST changes: +ELIQUIS5 M1 PO; +HYDROCHLOROTH12.5 M2 PO; +LOSARTAN PO; +TRELEGY ELLIPT1 EACH INH; +ZANAFLEX4 M2 PO; +[UNRECOGNIZED DRUG - OTHER]
--- NOTE | ~2019-10-08 | PAINCON ---
[address] [address] PAIN MANAGEMENT CONSULTATION Name: MALINDA BENÍTEZ FLAQUITA Room: [facility].Radha.#: [id number] Admission: 10/08/19 Attend Phys: Tete Gomez MD Discharge: Date of : 45 Report #: [id number] THIS REPORT FOR: //name// cc: Pranay Alegre Steve T. DO ~ THIS REPORT FOR: //name// CC: Tete Alegre DATE OF SERVICE: 10/08/2019 CHIEF COMPLAINT: Low back pain and pain in the right leg at times. HISTORY: The patient is a 74-year-old female who has returned to the pain clinic. She has noticed worsening of her pain over the last 2 days. She states that she has had some problem with her bronchial infection. She went to the [facility] and saw [facility]. She was quite excited about that. She has noticed that her pain has increased. She rates it as a 9/10 today. She has returned with the hopes of undergoing another epidural injection. Pain is worse with activity. Walking, standing, going from a sitting to a standing position can be problematic. ALLERGIES: CODEINE, DOXYCYCLINE AND ZOLPIDEM - CAUSE SLEEP WALKING, ____ CAUSE A RASH. CURRENT MEDICATIONS: Lipitor 20 mg, carbidopa/levodopa for restless legs syndrome 1 tablet, clonazepam 1 mg for anxiety, Synthroid 25 mcg, Mobic 15 mg, tramadol 50 mg 1-2 tablets every 4-6 hours. PAIN CLINIC ASSESSMENT AND PQRS: 1. The patient has some problems with her left knee. She has undergone knee debridement. She suffers from osteoarthritis. She is not being treated for rheumatoid arthritis. 2. Height 5 feet 5 inches, weight 145 pounds, BMI is 24.3. 3. Vital signs: Blood pressure 102/59, heart rate 89, respiratory rate 16, room air saturation is 88-90% and temperature 97.6. 4. Pain intensity 04/14. 5. Fall history: The patient has not fallen in the last 3 months. 6. Blood thinner. The patient is not on a blood thinning medication. 7. Hypertension. The patient is not being treated for hypertension. 8. Opioids greater than 6 weeks. The patient receives medications from one source. She is on tramadol. 9. Risk assessment tool, low for opioid use. 10. Functional assessment tool reviewed. 11. Recreational drug use: [place] [address] PAIN MANAGEMENT CONSULTATION Name: MALIDNA BENÍTEZ Room: [facility]#: [id number] Admission: 10/08/19 Attend Phys: Tete Gomez MD Discharge: Date of : 45 Report #: [id number] 12. Tobacco: The patient denies use of tobacco. 13. Alcohol: The patient rarely drinks alcoholic beverages. PHYSICAL EXAMINATION: GENERAL: The patient is a well-developed, well-nourished white female. Appears her stated age. She is alert and oriented x 3. Her affect is appropriate. Speech is fluent. HEENT: Normocephalic, atraumatic. Extraocular eye muscles intact. Sclerae nonicteric. Mucous membranes are moist. NECK: Without adenopathy or JVD. HEART: Regular rate. LUNGS: Generally clear to auscultation. ABDOMEN: Nontender. EXTREMITIES: Upper extremity muscle strength judged to be 4+/5 for the major muscle groups in the upper extremity. The patient has pain and discomfort, which is radiating down into the lower portion of her back in the L5-S1 dermatomal distribution. Right leg is most problematic. IMPRESSION: 1. Lumbar radiculopathy, right leg. L5-S1 dermatomal distribution. 2. Restless legs syndrome. 3. Hypothyroidism. 4. Hypercholesterolemia. RECOMMENDATIONS: We discussed treatment options with the patient. Risks and benefits of an epidural steroid injection were discussed. Possible complications of the procedure, which could include but are not limited to infection, worsening pain, no improvement in pain, nerve damage, bleeding, and headache were discussed with the patient, she elects to proceed. PROCEDURE NOTE: The patient was taken to the procedure area. She was then assisted in getting on the examination table. A pillow was placed under the abdomen to bolster and improve positioning. A 0.25% bupivacaine was infiltrated at the L5-S1 area. A 17-gauge Tuohy with loss of resistance technique was used to gain access to the epidural space. An anterior as well as lateral viewing corroborated appropriate placement. A total of 80 mg Depo-Medrol, 40 mg triamcinolone and 2 mL of 0.25% bupivacaine was injected. The patient tolerated the procedure well. She remained in the Pain Clinic for an appropriate amount of time. We would like to thank you for letting us participate in her care. We hope she continues to improve. By: 1415 1608N. Dorian Gomez MD /selvin
== END | disposition home or self-care (01) ==
LOC: M.PC 04:48
DX: M54.16 Radiculopathy, lumbar region (principal); J44.9 Chronic obstructive pulmonary disease, unspecified; M17.0 Bilateral primary osteoarthritis of knee; Z98.890 Other specified postprocedural states; Z88.6 Allergy status to analgesic agent; Z86.718 Personal history of other venous thrombosis and embolism; Z79.01 Long term (current) use of anticoagulants; Z79.899 Other long term (current) drug therapy

== ENCOUNTER 2019-10-14 16:21 | Inpatient (IN) | payer BC, MEDICARE ==
[~2019-10-14] VITALS: Ht 162.6 cm; Wt 63.0 kg
[~2019-10-14 16:21] MED LIST changes: -ELIQUIS5 M1 PO
[2019-10-14 19:12] LABS: HEMATOCRIT 36.5 % (37.0-47.0); HEMOGLOBIN 12.3 gm/dL (12.0-15.0); MCHC 33.8 g/dL (28.0-37.0); MCV 91.8 fL (80.0-100.0); MPV 7.7 fl. (7.2-11.1); NUCLEATED RBCS 0 /100WBC; PLATELET COUNT* 262 thou/uL (150-400); RBC 3.98 mil/uL (4.20-5.00); WBC 15.9 thou/uL (4.0-11.0)
[2019-10-14 19:20] LABS: CALCIUM 8.6 mg/dL (8.5-10.1); CREATININE 1.8 mg/dL (0.6-1.3); POTASSIUM 4.7 mmol/L (3.5-5.1)
[2019-10-14 19:22] LABS: APTT 23.1 Seconds (25.0-31.3); INR 1.1; PROTIME 11.3 Seconds (9.20-11.50)
[2019-10-14 19:25] LABS: ALBUMIN 3.7 g/dL (3.4-5.0); TOTAL BILIRUBIN 0.6 mg/dL (<0.1-1.0); TOTAL PROTEIN 6.9 g/dL (6.4-8.2)
[2019-10-14 20:13] LABS: ABSOLUTE LYMPHOCYTES 2.1 thou/uL (0.8-5.3); ABSOLUTE MONOCYTES 2.5 thou/uL (0.0-1.2); ABSOLUTE NEUTROPHILS 11.3 thou/uL (1.6-8.1); PLATELET ESTIMATE ADEQUATE
[2019-10-14 20:31] VITALS: BP 114/51
[2019-10-14 22:06] LABS: URINE BILIRUBIN NEGATIVE (Negative); URINE BLOOD NEGATIVE (Negative); URINE CLARITY CLEAR; URINE COLOR YELLOW; URINE GLUCOSE-RANDOM NEGATIVE (Negative); URINE KETONES NEGATIVE (Negative); URINE LEUKOCYTES-REFLEX 1+ (Negative); URINE NITRITE-REFLEX NEGATIVE (Negative); URINE PROTEIN TRACE (Negative); URINE SPECIFIC GRAVITY 1.025 (1.005-1.030); URINE UROBILINOGEN 0.2 E.U./dl (0.2-1.0)
[2019-10-14 22:08] VITALS: BP 123/56
[2019-10-14 22:13] LABS: SQUAMOUS 4-10 Moderate /LPF (0-3)
[2019-10-14 22:14] LABS: BACTERIA-REFLEX 1-9 Few /HPF (None Seen); HYALINE CASTS >10 Many /LPF (None Seen); URINE WBC-REFLEX 6-15 Few /HPF (0-5)
[2019-10-14 22:15] LABS: CRYSTALS None Seen /LPF (None Seen); MUCUS None Seen strn/LPF (None Seen); URINE RBC None Seen /HPF (0-2)
[2019-10-15] VITALS: BP 142/86
[2019-10-15 08:00] VITALS: BP 117/48
[2019-10-15 12:16] VITALS: BP 114/53
[2019-10-15 15:53] VITALS: BP 132/60
--- NOTE | 2019-10-15 16:32 | EKG ---
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1945 Requested By: Nenita Ramírez Order Number: [id number] MD: Red Ladd Measurements Intervals [place] Rate: 59 P: 76 [place]: 158 QRS: 38 QRSD: 86 T: 39 QT: 418 QTc: 414 Interpretive Statements Sinus rhythm Ventricular premature complex Abnormal R-wave progression, early transition Compared to ECG 09/08/2019 13:01:51 Ventricular premature complex(es) now present Sinus arrhythmia no longer present Electronically Signed On 10-15-2019 16:31:04 CDT by Red Ladd [email or web address] <ELECTRONICALLY SIGNED> By: Red Ladd MD, FACC 10/15/19 1631 1709 1709 Red Ladd MD, FAC /EPI
[2019-10-15 20:20] VITALS: BP 113/41
[2019-10-16] VITALS: BP 112/38
[2019-10-16 01:07] LABS: ABSOLUTE BASOPHILS 0.1 thou/uL (0.0-0.2); ABSOLUTE EOSINOPHILS 0.1 thou/uL (0.0-0.7); ABSOLUTE LYMPHOCYTES 0.9 thou/uL (0.8-5.3); ABSOLUTE MONOCYTES 1.4 thou/uL (0.0-1.2); ABSOLUTE NEUTROPHILS 8.4 thou/uL (1.6-8.1); BASOPHILS 0.5 %; EOSINOPHILS 0.5 %; HEMATOCRIT 31.4 % (37.0-47.0); HEMOGLOBIN 10.8 gm/dL (12.0-15.0); LYMPHOCYTES 8.5 %; MCH 31.8 pg (26.0-34.0); MCHC 34.4 g/dL (28.0-37.0); MCV 92.5 fL (80.0-100.0); MONOCYTES 12.7 %; MPV 8.9 fl. (7.2-11.1); NUCLEATED RBCS 0 /100WBC; POLYS 77.8 %; RBC 3.39 mil/uL (4.20-5.00); RDW-CV 15.3 % (10.5-14.5); WBC 10.8 thou/uL (4.0-11.0)
[2019-10-16 01:23] LABS: PLATELET COUNT* 175 thou/uL (150-400)
[2019-10-16 01:26] LABS: CALCIUM 8.5 mg/dL (8.5-10.1); CREATININE 1.5 mg/dL (0.6-1.3)
[2019-10-16 08:00] VITALS: BP 129/51
[2019-10-16] MEDS ORDERED: ELIQUIS5 M1 PO (11:43)
[2019-10-16 12:00] VITALS: BP 134/48
[2019-10-16 12:27] VITALS: BP 134/48
== END 2019-10-16 15:02 | disposition home or self-care (01) | DRG 299 ==
LOC: M.ERS 16:21 → M.TBA-ER 19:04 → M.2W 19:04
PROVIDERS: Family Medicine; Internal Medicine; Nurse Practitioner Family; ADMIT Internal Medicine
DX: I82.412 Acute embolism and thrombosis of left femoral vein (principal); N17.0 Acute kidney failure with tubular necrosis; D68.59 Other primary thrombophilia; I82.492 Acute embolism and thrombosis of other specified deep vein of left lower extremity; I82.432 Acute embolism and thrombosis of left popliteal vein; I48.91 Unspecified atrial fibrillation; J44.9 Chronic obstructive pulmonary disease, unspecified; M47.812 Spondylosis without myelopathy or radiculopathy, cervical region; I10 Essential (primary) hypertension; M54.30 Sciatica, unspecified side; M19.90 Unspecified osteoarthritis, unspecified site; Z90.49 Acquired absence of other specified parts of digestive tract; Z79.899 Other long term (current) drug therapy; Z88.6 Allergy status to analgesic agent; Z88.5 Allergy status to narcotic agent

== ENCOUNTER → 2020-01-14 | Outpatient (CLI) | payer BC, MEDICARE ==
[~2020-01-14] MED LIST changes: +ELIQUIS5 M1 PO
--- NOTE | 2020-01-20 08:41 | PAINCON ---
[address] [address] PAIN MANAGEMENT CONSULTATION Name: MALINDA BENÍTEZ Room: [facility] ReaganMeggan.#: [id number] Admission: 01/14/20 Attend Phys: Tete Gomez MD Discharge: Date of : 45 Report #: [id number] THIS REPORT FOR: //name// cc: Pranay Alegre Steve T. DO ~ THIS REPORT FOR: //name// CC: Tete Alegre DATE OF SERVICE: 01/14/2020 CHIEF COMPLAINT: Low back pain. HISTORY: The patient is a 74-year-old female who has been followed in the pain clinic because of lumbar radiculopathy. She has returned to the pain clinic for treatment. She has undergone epidural steroid injections. They have been helpful. She does have a history of blood clot in her left leg, this was 3 months ago. She has been having some low back pain in the right side as well as the left, right side is more problematic. Notes that the pain sometimes radiates down into her leg. Rates her pain today as a 10/10. She has used medications such as tramadol on a p.r.n. basis. She has used muscle relaxants, tizanidine. She feels that the pain has increased. She has stopped taking her Eliquis. She has not used it since 01/10/2020. She has returned to the pain clinic with a desire to undergo an epidural steroid injection to help quell her pain and improve her level of comfort. She has not had problems with injections in the past. ALLERGIES: CODEINE, DOXYCYCLINE, ZOLPIDEM CAUSES SLEEP WALKING. CURRENT MEDICATIONS: Lipitor 20 mg, carbidopa/levodopa for restless legs syndrome 1 tablet, clonazepam 1 mg for anxiety, Synthroid 25 mcg, Mobic 15 mg, tramadol 50 mg 1-2 tablets every 4-6 hours. PAIN CLINIC ASSESSMENT AND PQRS: 1. The patient has some pain and discomfort involving her left knee. She has undergone knee debridement in the past. She suffers from osteoarthritis. She is not being treated for rheumatoid arthritis. 2. Height 5 feet 5 inches, weight 154 pounds, BMI is 27. 3. Vital Signs: Blood pressure 119/56, heart rate 61, respiratory rate 16, room air saturation 95%, temperature 98.5. 4. Pain intensity 10/10. 5. Fall history: The patient has not fallen in the last 3 months. 6. Blood thinner. The patient has stopped taking her medications in preparation for the epidural injection. 7. Hypertension. The patient is not being [place] [address] PAIN MANAGEMENT CONSULTATION Name: MALINDA BENÍTEZ [facility] [id number] Admission: 01/14/20 Attend Phys: Tete Gomez MD Discharge: Date of : 45 Report #: [id number] 8. Opioids greater than 6 weeks. The patient receives medications from her primary. She is using tramadol. 9. Risk assessment tool, low for opioid use. 10. Functional assessment tool reviewed. 11. Recreational drug use. The patient denies. 12. Tobacco: The patient denies use of tobacco. 13. Alcohol: The patient rarely drinks alcoholic beverages. PHYSICAL EXAMINATION: GENERAL: The patient is a well-developed, well-nourished white female. Appears her stated age. She is alert and oriented x 3. Her affect is appropriate. Speech is fluent. HEENT: Normocephalic, atraumatic. Extraocular eye muscles intact. Sclerae nonicteric. Mucous membranes are moist. The patient is wearing a mask. NECK: Without adenopathy or JVD. HEART: Regular rate. LUNGS: Generally clear. ABDOMEN: Nontender. EXTREMITIES: Upper extremity muscle strength judged to be 4+/5 for the major muscle groups in the upper extremity. The patient has pain and discomfort with pain that is radiating down the L5-S1 dermatomal distribution involving the right as well as the left leg, but more problematic on the right. IMPRESSION: 1. Right lumbar radiculopathy L5 dermatomal distribution. 2. Restless leg syndrome. 3. Hypothyroidism. 4. Hypercholesterolemia. RECOMMENDATIONS: We discussed treatment options with the patient. Risks and benefits of an epidural steroid injection were discussed. Possible complications of the procedure were reviewed. They include but are not limited to infection, worsening of pain, no improvement in pain, bleeding, nerve damage. We also discussed the Covid-19 pandemic. We explained to the patient that should she become infected after the injection, she may have a more difficult time with virus. Steroids to decrease one's ability to fight off viruses because of lower immunity. The patient elects to proceed. PROCEDURE NOTE: The patient was taken to the procedure area. She was then assisted in getting on the examination table. Her back was sterilely prepped with a Betadine solution. A 0.25% bupivacaine was infiltrated using a 25-gauge needle. This was at the L5-S1 area. A 17-gauge Tuohy with loss of resistance technique was used to gain access to the epidural space. There was no CSF, heme, or paresthesia. Anterior, posterior as well as lateral viewing were used to corroborate appropriate placement. Total of 80 mg Depo-Medrol, 40 mg triamcinolone and 2 mL of 0.25% bupivacaine was injected. The patient tolerated [facility] [address] [place] [address] PAIN MANAGEMENT CONSULTATION Name: MALINDA BENÍTEZ FLAQUITA Room: [facility]#: [id number] Admission: 01/14/20 Attend Phys: Tete Gomez MD Discharge: Date of : 45 Report #: [id number] the procedure well. There were no complications. She remained in the Pain Clinic for an appropriate amount of time. She will follow up in the future as needed. We would like to thank you for letting us participate in her care. We hope she continues to improve. <ELECTRONICALLY SIGNED> By: Tete Gomez MD 01/20/20 0841 [id number] 1027N. Dorian Gomez MD /nt
== END | disposition home or self-care (01) ==
LOC: M.PC 05:06
PROVIDERS: ATTEND Anesthesiology Pain Medicine
DX: M54.16 Radiculopathy, lumbar region (principal); G89.29 Other chronic pain; E03.9 Hypothyroidism, unspecified; E78.00 Pure hypercholesterolemia, unspecified; J44.9 Chronic obstructive pulmonary disease, unspecified; Z98.890 Other specified postprocedural states; Z79.899 Other long term (current) drug therapy; Z88.8 Allergy status to other drugs, medicaments and biological substances

== ENCOUNTER → 2020-03-01 | Outpatient (CLI) | payer BC, MEDICARE ==
--- NOTE | 2020-03-09 23:52 | PAINCON ---
[address] [address] PAIN MANAGEMENT CONSULTATION Name: MALINDA BENÍTEZ FLAQUITA Room: [facility] ADELAIDA KirkPriyanka#: [id number] Admission: 03/01/20 Attend Phys: Tete Gomez MD Discharge: Date of : 45 Report #: [id number] THIS REPORT FOR: //name// cc: Pranay Alegre Steve T. DO ~ THIS REPORT FOR: //name// CC: Tete Alegre DATE OF SERVICE: 03/01/2020 CHIEF COMPLAINT: The pain has gotten worse over the last 3 weeks. HISTORY: The patient is a 74-year-old female who has been followed in the pain clinic because of lumbar radiculopathy. She has noticed a worsening of her pain. She notes that the pain can be quite problematic when she gets up and starts to move. She has developed pain in the lower portion of her back and radiates down into her right hip. She feels that the last injection was quite helpful. Notes that the pain is worse with certain activities. Notes pain improves with rest. The patient rates her pain as a 6/10 today. Pain radiates down into her right leg with numbness and tingling in the posterior portion of her leg. Notes some increased muscle spasms. Finds that the muscle relaxants are helpful. She has returned today with hopes of undergoing an epidural steroid injection. She does have a blood clot in her leg. She has stopped taking her anticoagulant medication. ALLERGIES: CODEINE, DOXYCYCLINE, ZOLPIDEM CAUSE SLEEP WALKING. CURRENT MEDICATIONS: Lipitor 20 mg, carbidopa/levodopa for restless legs, clonazepam 1 mg for anxiety, Synthroid 25 mcg, Mobic 15 mg, tramadol 50 mg 1-2 tablets every 4-6 hours. PAIN CLINIC ASSESSMENT AND PQRS: 1. The patient has some pain and discomfort involving her left knee. She has undergone debridement of her left knee in the past. She suffers from osteoarthritis. She is not being treated for rheumatoid arthritis. 2. Height 5 feet 4 inches, weight 149 pounds, BMI is 25.5. 3. Blood pressure 110/48, heart rate 63, respiratory rate 16, room air saturation is 98%, temperature 97.7. 4. Pain intensity, 01/12. 5. Fall history. The patient has not fallen since we saw her last. 6. Blood thinner. The patient is not on a blood thinning medication. 7. Hypertension. The patient is not being treated for hypertension. 8. Opioids greater than 6 weeks. The patient receives medication from her primary physician. [place] [address] PAIN MANAGEMENT CONSULTATION Name: MALINDA BENÍTEZ Room: [facility] Mann#: [id number] Admission: 03/01/20 Attend Phys: Tete Gomez MD Discharge: Date of : 45 Report #: [id number] 9. Risk assessment tool, low for opioid use. 10. Functional assessment tool, reviewed. 11. Recreational drugs. The patient denies. 12. Tobacco. The patient denies use of tobacco. 13. Alcohol. The patient rarely drinks alcoholic beverages. PHYSICAL EXAMINATION: GENERAL: The patient is a well-developed, well-nourished, white female. Appears her stated age. She is alert and oriented x 3. Her affect is appropriate. Speech is fluent. HEENT: Normocephalic, atraumatic. Extraocular eye muscles intact. Sclerae nonicteric. Mucous membranes are moist. The patient is wearing a mask. NECK: Without adenopathy or JVD. HEART: Regular rate. LUNGS: Generally clear. ABDOMEN: Nontender. EXTREMITIES: Upper extremity strength judged to be 4+/5 for the major muscle groups in the upper extremity. The patient has some pain and discomfort in her low back area with pain radiating down to her right leg in the L5-S1 dermatomal distribution. IMPRESSION: 1. Lumbar radiculopathy with L5-S1 dermatomal distribution. 2. Restless leg syndrome. 3. Hypothyroidism. 4. Hypercholesterolemia. RECOMMENDATIONS: We discussed treatment options with the patient. Risks and benefits of an epidural steroid injection were discussed. Possible complications of the procedure were reviewed. They include but are not limited to infection, worsening of pain, no improvement in pain, muscle soreness, nerve damage, spinal headache. We also discussed the problems with the COVID-19 virus. Steroids can decrease one's immune system. If she were to become infected, she might have a more difficult time with the virus. She elects to proceed. PROCEDURE NOTE: The patient was taken to the procedure area. She was then assisted in getting on the examination table. Her back was sterilely prepped with a Betadine solution. A 0.25% bupivacaine was infiltrated at the L5-S1 area. A 25-gauge needle was then used to anesthetize the area with 0.25% bupivacaine. A 17-gauge Tuohy with loss of resistance technique was used to gain access to the epidural space. There was no CSF, heme or paresthesia. A total of 80 mg Depo-Medrol, 40 mg triamcinolone and 2 mL of 0.25% bupivacaine was injected. The patient tolerated the procedure well. There were no complications. [address] [address] PAIN MANAGEMENT CONSULTATION Name: MALINDA BENÍTEZ Room: [facility] ADELAIDA Darnell#: [id number] Admission: 03/01/20 Attend Phys: Tete Gomez MD Discharge: Date of : 45 Report #: [id number] We would like to thank you for letting us participate in her care. We hope she continues to improve. <ELECTRONICALLY SIGNED> By: Tete Gomez MD 03/09/20 2352 2221 2336N. Dorian Gomez MD /PMT
== END | disposition home or self-care (01) ==
LOC: M.PC 05:04
PROVIDERS: ATTEND Anesthesiology Pain Medicine
DX: M54.16 Radiculopathy, lumbar region (principal); E03.9 Hypothyroidism, unspecified; E78.00 Pure hypercholesterolemia, unspecified; I10 Essential (primary) hypertension; J44.1 Chronic obstructive pulmonary disease with (acute) exacerbation; Z88.5 Allergy status to narcotic agent; Z88.1 Allergy status to other antibiotic agents; Z88.8 Allergy status to other drugs, medicaments and biological substances; Z79.899 Other long term (current) drug therapy; Z98.890 Other specified postprocedural states

== ENCOUNTER → 2020-03-07 | Outpatient (CLI) | payer BC | LOC: M.ULTRA 08:58 | DX: I82.4Y2 Acute embolism and thrombosis of unspecified deep veins of left proximal lower extremity (principal) ==

== ENCOUNTER 2020-04-28 15:21 | Emergency (ER) | payer BC ==
[~2020-04-28] VITALS: Ht 162.6 cm; Wt 65.8 kg
[2020-04-28 16:25] LABS: APTT 22.9 Seconds (25.0-31.3)
[2020-04-28 16:29] LABS: CREATININE 1.2 mg/dL (0.6-1.3); POTASSIUM 3.7 mmol/L (3.5-5.1)
[2020-04-28 16:33] LABS: ALBUMIN 3.6 g/dL (3.4-5.0); TOTAL BILIRUBIN 0.5 mg/dL (<0.1-1.0); TOTAL PROTEIN 6.7 g/dL (6.4-8.2)
[2020-04-28 17:10] LABS: ABSOLUTE EOSINOPHILS 0.3 thou/uL (0.0-0.7); ABSOLUTE LYMPHOCYTES 1.6 thou/uL (0.8-5.3); ABSOLUTE MONOCYTES 0.8 thou/uL (0.0-1.2); BASOPHILS 0.7 %; EOSINOPHILS 4.3 %; HEMATOCRIT 35.8 % (37.0-47.0); HEMOGLOBIN 12.4 gm/dL (12.0-15.0); LYMPHOCYTES 24.2 %; MCH 32.1 pg (26.0-34.0); MCHC 34.7 g/dL (28.0-37.0); MCV 92.5 fL (80.0-100.0); MONOCYTES 11.6 %; MPV 7.8 fl. (7.2-11.1); NUCLEATED RBCS 0 /100WBC; PLATELET COUNT* 209 thou/uL (150-400); POLYS 59.2 %; RBC 3.87 mil/uL (4.20-5.00); RDW-CV 13.8 % (10.5-14.5); WBC 6.8 thou/uL (4.0-11.0)
[2020-04-28 18:21] VITALS: BP 166/86
== END 2020-04-28 18:22 | disposition home or self-care (01) ==
LOC: M.ERS 15:21
PROVIDERS: Nurse Practitioner Psychiatric/Mental Health
DX: R60.0 Localized edema (principal); J44.9 Chronic obstructive pulmonary disease, unspecified; I10 Essential (primary) hypertension; Z98.890 Other specified postprocedural states; Z90.49 Acquired absence of other specified parts of digestive tract; Z88.5 Allergy status to narcotic agent

== ENCOUNTER → 2020-05-12 | Outpatient (CLI) | payer BC ==
--- NOTE | 2020-05-17 14:22 | PAINCON ---
[address] [address] PAIN MANAGEMENT CONSULTATION Name: MALINDA BENÍTEZ Room: [facility] Mann#: [id number] Admission: 05/12/20 Attend Phys: Tete Gomez MD Discharge: Date of : 45 Report #: [id number] THIS REPORT FOR: //name// cc: Pranay Alegre Steve T. DO ~ THIS REPORT FOR: //name// CC: Tete Alegre DATE OF SERVICE: 05/12/2020 CHIEF COMPLAINT: Worsening of pain. This is 10 today. HISTORY: This is a 74-year-old female who has been followed in the pain clinic because of lumbar radiculopathy. She has pain in the lower portion of her back. It radiates down in the sciatic area on the right. She has been walking with a limp because of the pain. Pretty much all the activities exacerbate her discomfort. She has returned today with desire to undergo another injection. She finds that tramadol is helpful. She has also used the muscle relaxant, tizanidine. She has had no complications with the injections in the past. Does still have muscle spasms. She has not taken her anticoagulation medication today. ALLERGIES: CODEINE, DOXYCYCLINE, ZOLPIDEM CAUSE SLEEP WALKING. CURRENT MEDICATIONS: Lipitor 20 mg, carbidopa/levodopa for restless legs, clonazepam 1 mg for anxiety, Synthroid 25 mcg, tramadol 50 mg 1-2 tablets every 4-6 hours, tizanidine 4 mg one-half tablet p.r.n. PAIN CLINIC ASSESSMENT AND PQRS: 1. The patient has some pain and discomfort involving her left knee. She has undergone debridement of her left knee in the past. She suffers from osteoarthritis. She is not being treated for rheumatoid arthritis. 2. Height 5 feet 4 inches, weight 152 pounds, BMI is 22. 3. Blood pressure 165/99, heart rate 55, respiratory rate 16, room air saturation 98%. 4. Pain intensity is 10/10. 5. Fall history: The patient has not fallen since we saw her last. 6. Blood thinner. The patient is not on a blood thinning medication. 7. Hypertension. The patient is not being treated for hypertension. 8. Opioids greater than 6 weeks. The patient receives medication from one person her primary physician. 9. Risk assessment tool, low for opioid use. 10. Functional assessment tool reviewed. 11. Recreational drug use. The patient [place] [address] PAIN MANAGEMENT CONSULTATION Name: MALINDA BENÍTEZ Room: [facility]#: [id number] Admission: 05/12/20 Attend Phys: Tete Gomez MD Discharge: Date of : 45 Report #: [id number] 12. Tobacco: The patient denies. 13. Alcohol: The patient rarely drinks alcoholic beverages. PHYSICAL EXAMINATION: GENERAL: The patient is a well-developed, well-nourished white female. Appears her stated age. She is alert and oriented x 3. Her affect is appropriate. Speech is fluent. The patient is wearing a facial covering. NECK: Without adenopathy or JVD. HEART: Regular rate. LUNGS: Clear. ABDOMEN: Nontender. EXTREMITIES: Upper extremity muscle strength judged to be 4+/5 for the major muscle groups in the upper extremity. The patient has some pain and discomfort that radiates down the posterior portion of her right leg in the L5-S1 dermatomal distribution. IMPRESSION: 1. Lumbar radiculopathy in the L5-S1 dermatomal distribution. 2. Restless leg syndrome. 3. Hypothyroidism. 4. Hypercholesterolemia. RECOMMENDATIONS: We discussed the risks and benefits of an epidural steroid injection. They include but are not limited to infection, muscle soreness, bleeding, nerve damage, and spinal headache. The patient is also aware that COVID-19 is pandemic. Steroids can decrease one's immune response. If the patient were to become infected, she may have a more difficult time with the virus. She elects to proceed. PROCEDURE NOTE: The patient was taken to the procedure area. She was then assisted in getting on the examination table. Her back was sterilely prepped with a Betadine solution. A 0.25% bupivacaine was infiltrated. A 17-gauge Tuohy with loss of resistance technique was used to gain access to the epidural space. There was no CSF, heme or paresthesia. Total of 80 mg Depo-Medrol, 40 mg triamcinolone and 2 mL of 0.25% bupivacaine was injected. The patient tolerated the procedure well. She will follow up in the future as needed. We would like to thank you for letting us participate in her care. We hope she continues to improve. <ELECTRONICALLY SIGNED> By: Tete Gomez MD 05/17/20 1422 0911 1805N. Dorian Gomez MD /DANICA
== END | disposition home or self-care (01) ==
LOC: M.PC 05-10 09:10
PROVIDERS: ATTEND Anesthesiology Pain Medicine
DX: M54.16 Radiculopathy, lumbar region (principal); E03.9 Hypothyroidism, unspecified; E78.00 Pure hypercholesterolemia, unspecified; G25.81 Restless legs syndrome; Z88.5 Allergy status to narcotic agent; Z88.8 Allergy status to other drugs, medicaments and biological substances; Z79.899 Other long term (current) drug therapy

== ENCOUNTER 2020-07-19 16:58 | Inpatient (IN) | payer BC, MEDICARE ==
[~2020-07-19] VITALS: Ht 162.6 cm; Wt 63.5 kg
[2020-07-19 17:17] VITALS: BP 161/74
[2020-07-19 17:59] LABS: ABSOLUTE LYMPHOCYTES 0.4 thou/uL (0.8-5.3); ABSOLUTE MONOCYTES 0.8 thou/uL (0.0-1.2); BASOPHILS 0.2 %; EOSINOPHILS 0.3 %; HEMATOCRIT 41.7 % (37.0-47.0); HEMOGLOBIN 14.1 gm/dL (12.0-15.0); LYMPHOCYTES 4.9 %; MCH 30.9 pg (26.0-34.0); MCHC 33.8 g/dL (28.0-37.0); MCV 91.4 fL (80.0-100.0); MPV 7.6 fl. (7.2-11.1); NUCLEATED RBCS 0 /100WBC; PLATELET COUNT* 252 thou/uL (150-400); POLYS 84.6 %; RBC 4.56 mil/uL (4.20-5.00); RDW-CV 13.5 % (10.5-14.5); WBC 8.3 thou/uL (4.0-11.0)
[2020-07-19 18:09] LABS: CALCIUM 9.1 mg/dL (8.5-10.1); CREATININE 1.6 mg/dL (0.6-1.3); POTASSIUM 4.4 mmol/L (3.5-5.1)
[2020-07-19 18:11] LABS: APTT 22.5 Seconds (25.0-31.3); INR 1.1; PROTIME 11.4 Seconds (9.20-11.50)
[2020-07-19 18:20] LABS: ALBUMIN 2.7 g/dL (3.4-5.0); TOTAL BILIRUBIN 0.8 mg/dL (<0.1-1.0); TOTAL PROTEIN 7.2 g/dL (6.4-8.2)
--- NOTE | 2020-07-19 20:14 | NUR ---
REPORT GIVEN TO CHI RAMIREZ. PT BEING TRANSFERED TO ROOM 111. COVID PRECAUTIONS IN PLACE.
[2020-07-19 21:45] VITALS: BP 131/60
--- NOTE | 2020-07-19 22:26 | NUR ---
PT TRANFERED TO COVID UNIT AT 2200. ENHANCED PRECAUTIONS IN PLACE EN ROUTE.
[2020-07-20 05:04] VITALS: BP 160/65
[2020-07-20 05:07] LABS: HEMATOCRIT 42.2 % (37.0-47.0); HEMOGLOBIN 14.1 gm/dL (12.0-15.0); MCH 30.6 pg (26.0-34.0); MCHC 33.5 g/dL (28.0-37.0); MCV 91.4 fL (80.0-100.0); MPV 7.5 fl. (7.2-11.1); NUCLEATED RBCS 0 /100WBC; PLATELET COUNT* 236 thou/uL (150-400); RBC 4.62 mil/uL (4.20-5.00); RDW-CV 13.5 % (10.5-14.5); WBC 3.1 thou/uL (4.0-11.0)
[2020-07-20 05:46] LABS: ALBUMIN 2.6 g/dL (3.4-5.0); CALCIUM 8.8 mg/dL (8.5-10.1); CREATININE 1.3 mg/dL (0.6-1.3); POTASSIUM 4.4 mmol/L (3.5-5.1); TOTAL BILIRUBIN 0.5 mg/dL (<0.1-1.0); TOTAL PROTEIN 7.6 g/dL (6.4-8.2)
[2020-07-20 06:36] LABS: ABSOLUTE LYMPHOCYTES 0.3 thou/uL (0.8-5.3); ABSOLUTE MONOCYTES 0.1 thou/uL (0.0-1.2); ABSOLUTE NEUTROPHILS 2.7 thou/uL (1.6-8.1); PLATELET ESTIMATE ADEQUATE
[2020-07-20 12:00] VITALS: BP 153/55
[2020-07-20 13:55] LABS: ALBUMIN 2.7 g/dL (3.4-5.0); CALCIUM 8.7 mg/dL (8.5-10.1); CREATININE 1.3 mg/dL (0.6-1.3); MAGNESIUM 2.1 mg/dL (1.8-2.4); TOTAL BILIRUBIN 0.7 mg/dL (<0.1-1.0); TOTAL PROTEIN 7.8 g/dL (6.4-8.2)
[2020-07-20 16:30] VITALS: BP 137/44
--- NOTE | 2020-07-20 17:50 | 2DMMODE ---
[place] [address] 2 D/M-MODE ECHOCARDIOGRAM Name: MALINDA BENÍTEZ FLAQUITA Room: [address] [place] [facility]#: [id number] Admission: 07/19/20 Attend Phys: Sania Sandoval Discharge: Date of : 45 Date of Service: 07/20/20 1750 Report #: [id number] THIS REPORT FOR: cc: Pranay Alegre,Red Young MD [facility] ~ APPROVED REPORT Study performed: 07/20/2020 14:44:39 EXAM: Comprehensive 2D, Doppler, and color-flow Echocardiogram Patient Location: In-Patient Room #: [facility] Status: routine BSA: 1.68 HR: 68 bpm BP: 160/65 mmHg Rhythm: NSR Other Information Study Quality: Good Indications Dyspnea 2D Dimensions IVSd: 10.82 (7-11mm) LVOT Diam: 19.34 (18-24mm) LVDd: 44.41 mm PWd: 9.25 (7-11mm) LVDs: 26.09 (25-40mm) Aortic Root: 29.30 mm Volumes Left Atrial Volume (Systole) LA ESV Index: 23.40 mL/m2 Aortic Valve AoV Peak Onur.: 1.32 m/s AO Peak Gr.: 7.02 mmHg LVOT Max P.65 mmHg AO Mean Gr.: 3.92 mmHg LVOT Mean P.02 mmHg LVOT Max V: 1.29 m/s AO V2 VTI: 29.85 cm LVOT Mean V: 0.79 m/s SANTOS (VTI): 2.69 cm2 LVOT V1 VTI: 27.35 [place] [address] 2 D/M-MODE ECHOCARDIOGRAM Name: MALINDA BENÍTEZ Room: [address] IN M.R.#: [id number] Admission: 07/19/20 Attend Phys: Sania Sandoval Discharge: Date of : 45 Date of Service: 07/20/20 1750 Report #: [id number] Mitral Valve E/A Ratio: 0.75 MV Decel. Time: 243.50 ms MV E Max Onur.: 0.70 m/s MV PHT: 70.61 ms MVA (PHT): 3.12 cm2 TDI E/Lateral E': 5.38 E/Medial E': 7.78 Medial E' Onur.: 0.09 m/s Lateral E' Onur.: 0.13 m/s Pulmonary Valve PV Peak Onur.: 0.98 m/s PV Peak Gr.: 3.82 mmHg Tricuspid Valve RAP Estimate: 5.00 mmHg TR Peak Gr.: 33.00 mmHg RVSP: 38.00 mmHg PA Pressure: 38.00 mmHg Left Ventricle The left ventricle is normal size. There is normal LV segmental wall motion. There is normal left ventricular wall thickness. Left ventricular systolic function is normal. The left ventricular ejection fraction is within the normal range. LVEF is 60%. Grade I - abnormal relaxation pattern. Right Ventricle The right ventricle is normal size. The right ventricular systolic function is normal. Atria The left atrium size is normal. The right atrium size is normal. Aortic Valve The aortic valve is normal in structure. No aortic regurgitation is present. There is no aortic valvular stenosis. Mitral Valve The mitral valve is normal in structure. There is no mitral valve regurgitation noted. No evidence of mitral valve stenosis. Tricuspid Valve The tricuspid valve is normal in structure. Mild tricuspid regurgitation. [place] [address] 2 D/M-MODE ECHOCARDIOGRAM Name: MALINDA BENÍTEZ Room: [address] [place] [facility]#: [id number] Admission: 07/19/20 Attend Phys: Sania Sandoval Discharge: Date of : 45 Date of Service: 07/20/20 4830 Report #: [id number] Pulmonic Valve The pulmonary valve is normal in structure. There is no pulmonic valvular regurgitation. Great Vessels The aortic root is normal in size. IVC is normal in size and collapses >50% with inspiration. Pericardium There is no pericardial effusion. <Conclusion> The left ventricle is normal size. There is normal left ventricular wall thickness. Left ventricular systolic function is normal. The left ventricular ejection fraction is within the normal range. LVEF is 60%. Grade I - abnormal relaxation pattern. The right ventricle is normal size. The left atrium size is normal. The aortic valve is normal in structure. The mitral valve is normal in structure. The tricuspid valve is normal in structure. Mild tricuspid regurgitation. Mild pulmonary hypertension. IVC is normal in size and collapses >50% with inspiration. There is no pericardial effusion. There is normal LV segmental wall motion. <ELECTRONICALLY SIGNED> By: Red Ladd MD, FACC 07/20/201749 49 49 Red Ladd MD, FACC /INF
--- NOTE | 2020-07-20 18:20 | EKG ---
[place] [address] ELECTROCARDIOGRAM REPORT Name: MALINDA BENÍTEZ Room: [address] ADM IN M.R.#: [id number] Admission: 07/19/20 Attend Phys: Sania Sandoval Discharge: Date of : 45 Date of Service: 07/19/20 1719 Report #: [id number] THIS REPORT FOR: //name// [facility] ED Test Date: 2020-07-19 Test Time: 17:19:27 Pat Name: MALINDA BENÍTEZ Department: Room: [facility] Gender: F [employer] Supervisor: JUAN : 1945 Requested By: Freddy Almeida Order Number: [id number] MD: Viet Conde Measurements Intervals [place] Rate: 66 P: 46 AK: 172 QRS: 4 QRSD: 86 T: 38 QT: 385 QTc: 404 Interpretive Statements Sinus rhythm Atrial premature complexes Compared to ECG 10/14/2019 17:09:50 Atrial premature complex(es) now present Ventricular premature complex(es) no longer present Electronically Signed On 07-20-2020 18:20:48 [employer] TECHNICIAN by Viet Conde [email or web address] <ELECTRONICALLY SIGNED> By: Catherine Conde MD, FAC 07/20/20 1820 18 18 Catherine Conde MD, FAC /EPI
--- NOTE | 2020-07-20 19:02 | NUR ---
PT A&OX4 VSS. PT SINUS ON MONITOR. PT DECLINES SCDs AT THIS TIME. U/S AT BEDSIDE FOR LOWER EXT AT END OF THIS SHIFT. PT REMAINS ON 8L BY HIGH FLOW. PT UP SBA, GAIT STEADY. PT C/O HEAD PAIN THIS SHIFT, TYLENOL ADMINISTERED ORDERED. MIDLINE PLACED TO DEYA BY TERESA RAMIREZ. DRESSING C/D/I. CONVALESCENT PLASMA ORDERED, CONSENT FORM TO BE SIGNED BY PHYSICIAN FOLLOWING PATIENT EDUCATION. PT SPOUSE UPDATED BY PHONE. PT RESTS IN BED WITH CALL LIGHT IN REACH, WILL CONTINUE TO MONITOR
[2020-07-20 20:00] VITALS: BP 153/54
[2020-07-20 22:51] VITALS: BP 135/54; BP 166/73
[2020-07-21] VITALS: BP 135/54
[2020-07-21 06:35] LABS: ABSOLUTE LYMPHOCYTES 0.3 thou/uL (0.8-5.3); ABSOLUTE MONOCYTES 0.3 thou/uL (0.0-1.2); ABSOLUTE NEUTROPHILS 5.8 thou/uL (1.6-8.1); BASOPHILS 0.1 %; LYMPHOCYTES 4.6 %; MCH 30.7 pg (26.0-34.0); MCV 90.3 fL (80.0-100.0); MONOCYTES 5.4 %; MPV 7.2 fl. (7.2-11.1); NUCLEATED RBCS 0 /100WBC; PLATELET COUNT* 227 thou/uL (150-400); POLYS 89.9 %; RBC 3.88 mil/uL (4.20-5.00); RDW-CV 13.3 % (10.5-14.5); WBC 6.4 thou/uL (4.0-11.0)
[2020-07-21 06:37] LABS: HEMOGLOBIN 11.9 gm/dL (12.0-15.0)
[2020-07-21 06:55] LABS: ALBUMIN 2.4 g/dL (3.4-5.0); CALCIUM 8.9 mg/dL (8.5-10.1); CREATININE 1.3 mg/dL (0.6-1.3); MAGNESIUM 2.2 mg/dL (1.8-2.4); POTASSIUM 3.7 mmol/L (3.5-5.1); TOTAL BILIRUBIN 0.4 mg/dL (<0.1-1.0); TOTAL PROTEIN 6.4 g/dL (6.4-8.2)
[2020-07-21 08:20] VITALS: BP 153/61
--- NOTE | 2020-07-21 09:29 | NUR ---
PT. ON 6L O2 THIS AM. SPOKE WITH HER ON PHONE. SHE SAID SHE AND HER WERE DX LAST WEEK WITH MALKA. HE IS AT HOME. SHE HAS A NEBULZER AT HOME. NO OTHER DME. NO HX OF HH OR SNF. SHE IS NORMALLY INDEPENDENT. CM WILL FOLLOW FOR DISCHARGE PLANNING.
--- NOTE | 2020-07-21 10:21 | NUR ---
PATIENT HAS SLEPT WELL THROUGHOUT MOST OF THE NIGHT. VSS ON 8L 02 VIA NASAL CANNULA. MEDICATIONS GIVEN ORDERED AND CHARTED. ASSESSMENT CHARTED. NO C/O SOA. NO C/O PAIN. PATIENT UP AD-SERJIO TO THE BSC. IV IN LEFT UPPER ARM-SL. ABT GIVEN WITHOU ANY ADVERSE SIDE EFFECTS NOTED. PATIENT INSTRUCTED TO USE CALL LIGHT WHEN NEEDING ASSISTANCE. HOURLY ROUNDS MADE. WILL CONTINUE WITH PLAN OF CARE AND NURSING TO MONITOR.
[2020-07-21 13:04] VITALS: BP 168/61
--- NOTE | 2020-07-21 19:00 | NUR ---
ASSESSMENT DOCUMENTED. MEDS GIVEN PER E-MAR. MIDLINE PATENT. NO REPORTS OF PAIN. PT UP AD SERJIO IN ROOM. PT ON 6-8L NC.
[2020-07-21 19:14] VITALS: BP 159/63
[2020-07-21 20:00] VITALS: BP 171/68
[2020-07-21 23:31] VITALS: BP 180/66
[2020-07-22 04:00] VITALS: BP 170/70
[2020-07-22 04:36] LABS: ABSOLUTE BASOPHILS 0.1 thou/uL (0.0-0.2); ABSOLUTE LYMPHOCYTES 0.2 thou/uL (0.8-5.3); ABSOLUTE MONOCYTES 0.3 thou/uL (0.0-1.2); ABSOLUTE NEUTROPHILS 7.7 thou/uL (1.6-8.1); BASOPHILS 1.3 %; HEMOGLOBIN 12.8 gm/dL (12.0-15.0); LYMPHOCYTES 2.2 %; MCH 30.8 pg (26.0-34.0); MCHC 33.7 g/dL (28.0-37.0); MCV 91.5 fL (80.0-100.0); MONOCYTES 3.3 %; MPV 7.1 fl. (7.2-11.1); NUCLEATED RBCS 0 /100WBC; PLATELET COUNT* 284 thou/uL (150-400); POLYS 93.2 %; RBC 4.15 mil/uL (4.20-5.00); RDW-CV 13.6 % (10.5-14.5); WBC 8.2 thou/uL (4.0-11.0)
[2020-07-22 05:08] LABS: ALBUMIN 2.8 g/dL (3.4-5.0); CALCIUM 9.1 mg/dL (8.5-10.1); CREATININE 1.5 mg/dL (0.6-1.3); MAGNESIUM 2.1 mg/dL (1.8-2.4); POTASSIUM 3.5 mmol/L (3.5-5.1); TOTAL BILIRUBIN 0.6 mg/dL (<0.1-1.0); TOTAL PROTEIN 6.9 g/dL (6.4-8.2)
--- NOTE | 2020-07-22 05:09 | NUR ---
ASSUMED PT CARE AT APPROX 1930. PT IS AWAKE AND ORIENTED X4. PT IS TRACING SR ON THE BOARDING HOUSE COOK. PT IS NOT IN DISTRESS. ELEVATED BP NOTED CHARTED, DR HOLLOWAY INFORMED, LOSARTAN GIVEN PER OCT. WITH SLIGHT IMPROVEMENT ON BP (170/70). PT DENIES PAIN/DISCOMFORT. NO DESATURATIONS NOTED ON 5L OF O2. CALL LIGHT WITHIN REACH. HOURLY ROUNDING DONE FOR PT SAFETY. FALL PRECAUTIONS IN PLACE.
--- NOTE | 2020-07-22 07:50 | NUR ---
ASSUMED CARE OF PATIENT ANTONI VARMA FROM NIGHT NURSE. PT IS DOING WELL WITH NO CO OF PAIN OR NAUSEA. SHE WAS EDUCATED ONPOC, DISEASE PROCESS AND USING THE CALL LIGHT FOR ASSISTANCE. WILL CONTINUE TO MONITOR. PT UP IN THE CHAIR, CALL LIGHT IN REACH.
[2020-07-22 08:00] VITALS: BP 164/67
[2020-07-22 12:00] VITALS: BP 168/65
--- NOTE | 2020-07-22 12:00 | NUR ---
PT.O2 REQUIREMENT DOWN SOME TO 4L/NC . CONTINUES ON IV MEDS. INCREASE ACTIVITY TOLERATED.
--- NOTE | 2020-07-22 13:59 | CON ---
[address] [address] CONSULTATION Name: MALINDA BENÍTEZ Room: [address] ADM IN M.R.#: [id number] Admission: 07/19/20 Attend Phys: Reagan Ramirez Discharge: Date of : 45 Report #: [id number] THIS REPORT FOR: cc: Pranay Alegre Steve T. DO ~ Neil Black MD DATE OF SERVICE: 07/20/2020 REQUESTING PHYSICIAN: Ramesh Castellanos MD INDICATION FOR CONSULTATION: Acute hypoxemic respiratory failure secondary to COVID-19. HISTORY OF PRESENT ILLNESS: A 74-year-old female with past medical history is as mentioned below. This does include a history of extensive left lower extremity DVT earlier of this year. The patient was subsequently anticoagulated for several months and then anticoagulation was discontinued. It is mentioned as an unprovoked clot; however, this did occur after the patient first had a diagnosis of influenza and then a COPD exacerbation, leading to admission in this hospital. The patient also has a history of back pain. The patient is now admitted yesterday, presentation is with increase in shortness of breath and cough. The patient has also been hypoxemic, currently requiring 8-9 liters of oxygen to maintain O2 saturation. She does have significant shortness of breath at rest. She does have a cough. There is minimal amounts of sputum. There is no chest pain. The patient has reported having had fever and chills. She does not have any increase in swelling of lower extremities and calf pain now. She does answer to the negative for 12 questions for review of systems except as mentioned above. PAST MEDICAL HISTORY: Recent extensive DVT, left lower extremity as above. This is subsequently cleared on a Doppler. She was not on anticoagulation on admission. COPD, breast augmentation, hypertension. Echo from 2019 shows normal left ventricular ejection fraction and right heart pressures. I do not have an echo since she had the DVT. Brain surgery for aneurysm with [address], cervical rib removed, x 3, appendectomy, degenerative disk disease. SOCIAL HISTORY: There is an extensive history of smoking in the past, has now discontinued. No known history of heavy alcohol use or illegal drug use. CURRENT MEDICATIONS: List in [facility] reviewed. HOME MEDICATIONS: [place] [address] CONSULTATION Name: SAMMY BENÍTEZTRACY SAMS Room: [address]#: [id number] Admission: 07/19/20 Attend Phys: Reagan Ramirez Discharge: Date of : 45 Report #: [id number] ALLERGIES: CODEINE. FAMILY HISTORY: No pertinent family history. PHYSICAL EXAMINATION: GENERAL: She is alert, awake and oriented. She, however, does appear to be short of breath at rest. VITAL SIGNS: Has a pulse of 61 and a blood pressure 160/65. She is on 8 liters of oxygen, maintaining O2 saturation in the low 90s. Respiratory rate was around 25-26 at the time of my examination. Heart rate was 61. She is afebrile with a temperature of 36.2. HEENT: Head is normocephalic and atraumatic. NECK: Does not show raised JVP, asymmetry, mass or lymph nodes. CHEST: Symmetrical expansion on inspection and palpation. On auscultation, breath sounds are bilaterally equal, decreased, expirations are prolonged. There does appear to be bronchospasm. I do not hear any added sounds. HEART: Regular. There is no murmur. ABDOMEN: Soft and nontender. EXTREMITIES: Lower extremities show no edema, no calf tenderness. SKIN: Dry and intact. NEUROLOGICAL: Moves all extremities bilaterally equally and spontaneously with no focal deficit identified. LABORATORY DATA: [facility] This was reviewed. I obtained a D-dimer now, which is elevated. I have also repeated labs this afternoon and reviewed. Chest x-rays done yesterday as well as today in [facility] reviewed and compared with previous records and elevation in creatinine to 1.3 is noted. Note that the patient has had mild elevation in creatinine previously as well up to 1.8 in October, had reduced to 1.2 in April. ASSESSMENT AND PLAN: 1. Acute hypoxemic respiratory failure secondary to COVID-19. Continue to titrate oxygen. I will have a low threshold of using BiPAP while asleep if she was too worsened. 2. COVID-19. The patient is on Solu-Medrol. I did increase the dose. Also, I ordered remdesivir. There is 1 unit of convalescent plasma ordered by Dr. Ramesh Castellanos and I agree with this. I will likely order one more unit. 3. Pulmonary infiltrates. Antibiotics were broadened. More cultures and serologies ordered. 4. Chronic obstructive pulmonary disease exacerbation. Solu-Medrol as above. Nebulized bronchodilators also ordered. 5. Recent extensive deep venous thrombosis/elevated D-dimer. I ordered a stat venous Dopplers as well as 2D echo. Down the line, we may need to do a CTA [address] [place] [address] CONSULTATION Name: MALINDA BENÍTEZ Room: [address] IN [facility]#: [id number] Admission: 07/19/20 Attend Phys: Reagan Ramirez Discharge: Date of : 45 Report #: [id number] chest while understanding that the patient is higher than average risk for contrast injury secondary to mild elevation in creatinine. If so considered, I may consider hydrating the patient initially and then diuresing later. Pending further evaluation and for now, did proceed with full anticoagulation. Note that the patient does have a history of brain aneurysm with [address] Therefore, this will need to be watched very closely. 6. Clostridium difficile prophylaxis. We will order Lactinex. 7. Gastrointestinal prophylaxis, already on Protonix. 8. Mild renal insufficiency. See discussion regarding the patient's baseline creatinine as above. Has had mild elevation in creatinine previously as well, although creatinine did decrease to 1.2 in April. 9. History of elevated lipase. This is noted from 08/2019. I will go ahead and add a lipase to the labs now and see where we stand. Thanks for this consultation. <ELECTRONICALLY SIGNED> By: Neil Black MD 07/22/20 1359 [id number] Black MD /nt
[2020-07-22 16:18] LABS: CALCIUM 8.9 mg/dL (8.5-10.1); CREATININE 1.6 mg/dL (0.6-1.3); MAGNESIUM 2.1 mg/dL (1.8-2.4); POTASSIUM 3.5 mmol/L (3.5-5.1)
[2020-07-22 20:00] VITALS: BP 176/72
[2020-07-22 23:31] VITALS: BP 180/77
--- NOTE | 2020-07-23 04:18 | NUR ---
ASSUMED PT CARE AT APPROX 1930. PT IS AWAKE AND ORIENTED X4. PT IS NOT IN DISTRESS, NO DESATURATIONS NOTED ON 4L OF O2/NC. PT IS TRACING SR ON THE STAFFING ANALYST. PT DENIES PAIN. NO ACUTE CHANGES THROUGHOUT THIS SHIFT. CALL LIGHT WITHIN REACH. HOURLY ROUNDING DONE FOR PT SAFETY.
[2020-07-23 04:53] VITALS: BP 183/85
[2020-07-23 05:00] VITALS: BP 171/74
[2020-07-23 05:24] LABS: HEMATOCRIT 34.2 % (37.0-47.0); HEMOGLOBIN 11.6 gm/dL (12.0-15.0); MCH 30.5 pg (26.0-34.0); MCHC 34.1 g/dL (28.0-37.0); MCV 89.5 fL (80.0-100.0); MPV 7.3 fl. (7.2-11.1); RBC 3.82 mil/uL (4.20-5.00); RDW-CV 13.2 % (10.5-14.5); WBC 8.2 thou/uL (4.0-11.0)
[2020-07-23 05:32] LABS: ALBUMIN 2.4 g/dL (3.4-5.0); CALCIUM 8.5 mg/dL (8.5-10.1); CREATININE 1.4 mg/dL (0.6-1.3); TOTAL BILIRUBIN 0.6 mg/dL (<0.1-1.0); TOTAL PROTEIN 5.9 g/dL (6.4-8.2)
--- NOTE | 2020-07-23 07:45 | NUR ---
ASSUMED CARE OF PATIENT THIS MORNING FROM NIGHT NURSE. PT IS DOING WELL AND HAS NO CO OF PAIN OR NAUSEA AT THIS TIME. SHE WAS EDUCATED ON POC, FALL SAFETY. BED IS IN THE LOWEST POSITION AND THE CALL LIGHT IS IN REACH. WILL CONTINUE TO MONITOR.
[2020-07-23 08:00] VITALS: BP 178/70
[2020-07-23 12:00] VITALS: BP 197/89
[2020-07-23 16:00] VITALS: BP 196/68
[2020-07-23 20:00] VITALS: BP 168/60
[2020-07-24] VITALS (7 sets, daily range): BP systolic 132–190; BP diastolic 67–89
--- NOTE | 2020-07-24 03:54 | NUR ---
ASSUMED PT CARE AT APPROX 1930. PT IS AWAKE AND ORIENTED X4. PT IS TRACING SR ON THE DIVISION FIELD INSPECTOR. PT DENIES PAIN/DISCOMFORT. PT IS NOT IN DISTRESS, NO DESATURATIONS NOTED ON 4L OF O2/HFC. NO ACUTE CHANGES THROUGHOUT THIS SHIFT. CALL LIGHT WTIHIN REACH. HOURLY ROUNDING DONE FOR PT SAFETY. FALL PRECAUTIONS IN PLACE.
--- NOTE | 2020-07-24 18:42 | NUR ---
ASSESSMENT DOCUMENTED. MEDS GIVEN PER E-MAR. MIDLINE PATENT. NO REPORTS OF PAIN. O2 AT 4L NC THIS SHIFT. ISOLATION MAINTAINED.
[2020-07-25 01:03] VITALS: BP 178/76
[2020-07-25 04:47] VITALS: BP 169/74
[2020-07-25 05:35] LABS: HEMOGLOBIN 13.2 gm/dL (12.0-15.0); MCH 30.1 pg (26.0-34.0); MCHC 33.8 g/dL (28.0-37.0); MCV 89.2 fL (80.0-100.0); MPV 7.4 fl. (7.2-11.1); NUCLEATED RBCS 0 /100WBC; PLATELET COUNT* 310 thou/uL (150-400); RBC 4.38 mil/uL (4.20-5.00); RDW-CV 13.4 % (10.5-14.5); WBC 11.3 thou/uL (4.0-11.0)
[2020-07-25 05:49] LABS: ALBUMIN 2.7 g/dL (3.4-5.0); CREATININE 1.4 mg/dL (0.6-1.3); MAGNESIUM 2.1 mg/dL (1.8-2.4); POTASSIUM 3.8 mmol/L (3.5-5.1); TOTAL BILIRUBIN 0.9 mg/dL (<0.1-1.0); TOTAL PROTEIN 6.3 g/dL (6.4-8.2)
[2020-07-25 07:10] LABS: ABSOLUTE LYMPHOCYTES 0.7 thou/uL (0.8-5.3); ABSOLUTE MONOCYTES 0.9 thou/uL (0.0-1.2); ABSOLUTE NEUTROPHILS 9.7 thou/uL (1.6-8.1); METAMYELOCYTES 3 %; PLATELET ESTIMATE ADEQUATE
--- NOTE | 2020-07-25 07:27 | NUR ---
PT IS ABLE TO COMMUNICATE HER NEEDS TO STAFF EFFECTIVELY. SHE HAS DENIED THE NEED FOR PAIN MEDICATION UP TO 0700 THIS MORNING. O2 SAT IS CONTINUING TO BE MONITORED.
[2020-07-25 08:00] VITALS: BP 151/76
[2020-07-25 11:43] VITALS: BP 140/66
[2020-07-25 16:00] VITALS: BP 145/75
[2020-07-25 20:24] VITALS: BP 141/54
[2020-07-26 00:07] VITALS: BP 160/75
[2020-07-26 04:56] VITALS: BP 168/71
--- NOTE | 2020-07-26 07:53 | NUR ---
PT IS ABLE TO COMMUNICATE HER NEEDS TO STAFF EFFECTIVELY. SHE HAS DENIED THE NEED FOR PAIN MEDICATION UP TO 0700 TODAY. PT IS STILL WEARING SUPPLEMENTAL OXYGEN AT THIS TIME. PT IS HOPING TO BE DISCHARGED TODAY.
[2020-07-26 08:00] VITALS: BP 149/57
--- NOTE | 2020-07-26 14:34 | NUR ---
Nutrition: Pt screen for LOS. No intake records but RN reports pt is doing well with meals, no concerns. Albumin 2.7. Meds reviewed. No new wt since admit. Pt was hoping to discharge today, but needs to decrease O2 dependence. Assessed at low nutrition risk.
[2020-07-26 16:00] VITALS: BP 146/46
--- NOTE | 2020-07-26 16:57 | NUR ---
DISCUSSED POTENTIAL DISCHARGE FOR TOMORROW WITH PTS ,RAIMUNDO, ON PHONE. PT.TOLD NURSE SHE WANTED ME TO TALK WITH HIM ABOUT HER O2 AND IF INSURNACE WILL PAY FOR IT. DISCUSSED THIS AND THAT R.T. WOULD DO O2 SATURATIONS AT REST AND WITH ACTIVITY. IF DOCUMENTED AND NUMBERS SHOW SHE NEEDS IT, INSURANCE WILL PAY. HE SAID HE FIGURED INSURANCE WOULD PAY LONG SHE NEEDED IT. DISCUSSED HOME HEALTH. HE SAID HE DID NOT REALLY FEEL THEY NEEDED IT. HE WILL BE HOME WITH HER UNTIL AFTER THE NEW YEAR. IF THEY CHANGED THEIR MINDS HE WOULD GET IN TOUCH WITH HER PCP,.
--- NOTE | 2020-07-26 18:43 | NUR ---
Assumed care of patient at 0730. Patient awake, pleasant and oriented. No c/o pain and/or nausea. Patient upset when she was unable to pass the RT excercise with rest and activities. Comforted and encouraged patient. Verbalizes understanding of plan of care and goals. Call light in place. Hourly rounding for patient safety,
[2020-07-26 20:01] VITALS: BP 158/73
[2020-07-26 23:55] VITALS: BP 143/69
[2020-07-27 04:00] VITALS: BP 145/54
[2020-07-27 05:10] LABS: HEMATOCRIT 38.7 % (37.0-47.0); HEMOGLOBIN 13.2 gm/dL (12.0-15.0); MCH 30.4 pg (26.0-34.0); MCHC 34.2 g/dL (28.0-37.0); MPV 7.6 fl. (7.2-11.1); RBC 4.35 mil/uL (4.20-5.00); RDW-CV 13.2 % (10.5-14.5); WBC 11.6 thou/uL (4.0-11.0)
[2020-07-27 05:40] LABS: CALCIUM 8.7 mg/dL (8.5-10.1); CREATININE 1.5 mg/dL (0.6-1.3); MAGNESIUM 2.1 mg/dL (1.8-2.4); POTASSIUM 3.8 mmol/L (3.5-5.1)
--- NOTE | 2020-07-27 07:31 | NUR ---
PT IS ABLE TO COMMUNICATE HER NEEDS TO STAFF EFFECTIVELY. SHE HAS DENIED THE NEED FOR PAIN MEDICATION UP TO 0700 THIS MORNING. REST AND EXERCISE O2 DEMAND TEST MOST LIKELY BEFORE HER DISCHARGE LATER TODAY.
[2020-07-27 08:00] VITALS: BP 131/67
[2020-07-27] MEDS ORDERED: COZAAR100 MG PO (08:41)
[2020-07-27] MEDS ORDERED: BUDESONIDE0.5 MG/2 M NEB (08:41)
[2020-07-27] MEDS ORDERED: IPRAT-ALBUT 0.5-3 ML INH (08:41)
[2020-07-27] MEDS ORDERED: BROVANA15 MCG/2 M INH (08:41)
[2020-07-27] MEDS ORDERED: PREDNISONE 10 M10 M1 PO (08:41)
[2020-07-27] MEDS ORDERED: NORVASC5 MG PO (08:41)
[2020-07-27 12:00] VITALS: BP 107/56
[2020-07-27 16:00] VITALS: BP 132/57
--- NOTE | 2020-07-27 17:46 | NUR ---
PT.RA AND EXERCISE SAT FROM THIS AM SHOWED PT.NEEDED 6L/NC WITH ACTIVITY. TOO HIGH FOR DISCHARGE. STATED PT.MOST LIKELY CAN DISCHARGE IN AM. WILL HAVE REPEAT RESTING AND EXERCISE SATURATIONS IN AM. O2 CO. WOULD NOT DELIVER PORTABLE OR CONCENTRATOR WITH OUT CURRENT SATS AND ORDER. WILL ARRANGE FIRST THING IN AM.
[2020-07-27 20:00] VITALS: BP 123/39
[2020-07-28 00:33] VITALS: BP 112/59
[2020-07-28 04:33] VITALS: BP 122/50
--- NOTE | 2020-07-28 07:15 | NUR ---
CHANGE OF SHIFT REPORT GIVEN PATIENT SEEN AT BEDSIDE, IN BED RESTING ASSUMED PATIENT CARE
--- NOTE | 2020-07-28 07:19 | NUR ---
Alert and oriented x 4. Up independently in the room. Vitals stable,O2 sat within normal limits on 4L n/c. No pain. She is sinus rythym on the monitor. She has slept well.
[2020-07-28 08:00] VITALS: BP 146/59
[2020-07-28 12:37] VITALS: BP 146/59
--- NOTE | 2020-07-28 13:00 | NUR ---
O2 SATS DONE AND PT.NEEDS O2 4L/NC AT REST AND 5L/NC. SHE WANTED TO USE [employer]. FAXED PROGRESS NOTE,ORDER,SATS,AND FACE SHEET TO [facility] AND SPOKE WITH [employer]. THEY WILL DELIVER PORTABLE TANK TO HOSPITAL ROOM AND THEN WHEN SHE GETS HOME TO CALL NUMBER ON TANK FOR HOME DELIVERY. PT.CHOSE [facility] FAXED REFERRAL DN DISCHARGE ORDERS TO [phone]. O[facility] CALLED AND CONFIRMED THEY CAN SEE PT.OVER THE WEEKEND.
--- NOTE | 2020-07-28 13:46 | NUR ---
patient discharged to home with 02 at 6 l nc and h/h portable oxygen tank delivered patient given info r/t [facility] patient iv and heart monitor removed personal belongings returned patient assisted out via wc to waiting car with spouse
== END 2020-07-28 13:46 | disposition home health service (06) | DRG 871 ==
LOC: M.ERS 16:58 → M.ORTHSURG 18:03 → M.TBA-ER 18:03 → M.ORTHSURG 20:23
PROVIDERS: Family Medicine; Internal Medicine; Internal Medicine Critical Care Medicine; ADMIT Internal Medicine; ATTEND Internal Medicine
DX: A41.89 Other specified sepsis (principal); U07.1 COVID-19; J12.89 Other viral pneumonia; J96.01 Acute respiratory failure with hypoxia; N17.0 Acute kidney failure with tubular necrosis; J44.0 Chronic obstructive pulmonary disease with (acute) lower respiratory infection; J44.1 Chronic obstructive pulmonary disease with (acute) exacerbation; I10 Essential (primary) hypertension; E78.00 Pure hypercholesterolemia, unspecified; Z88.5 Allergy status to narcotic agent; Z87.891 Personal history of nicotine dependence; Z86.718 Personal history of other venous thrombosis and embolism

== ENCOUNTER → 2020-09-08 | Outpatient (CLI) | payer BC, MEDICARE ==
[~2020-09-08] MED LIST changes: +BROVANA15 MCG/2 M INH; +BUDESONIDE0.5 MG/2 M NEB; +COZAAR100 MG PO
== END | disposition home or self-care (01) ==
LOC: M.PC 09:44
PROVIDERS: ATTEND Anesthesiology Pain Medicine
DX: M54.16 Radiculopathy, lumbar region (principal); G89.29 Other chronic pain; I10 Essential (primary) hypertension; E03.9 Hypothyroidism, unspecified; J44.9 Chronic obstructive pulmonary disease, unspecified; E78.00 Pure hypercholesterolemia, unspecified; Z98.890 Other specified postprocedural states; Z79.899 Other long term (current) drug therapy; Z79.01 Long term (current) use of anticoagulants

== ENCOUNTER 2020-10-27 10:53 | Inpatient (IN) | payer MEDICARE, OTHER ==
[2020-10-27] VITALS (13 sets, daily range): BP systolic 85–128; BP diastolic 31–59
[~2020-10-27] VITALS: Ht 162.6 cm; Wt 72.6 kg
[2020-10-27] MEDS ORDERED: ELIQUIS2.5 MG PO (11:05)
[2020-10-27] MEDS ORDERED: VITAMIN D375 MCG PO (11:06)
[2020-10-27] MEDS ORDERED: PERCOCET 10-321 EAC1 PO (11:12)
[2020-10-27 11:25] LABS: ABSOLUTE BASOPHILS 0.1 thou/uL (0.0-0.2); ABSOLUTE EOSINOPHILS 0.1 thou/uL (0.0-0.7); ABSOLUTE LYMPHOCYTES 1.2 thou/uL (0.8-5.3); ABSOLUTE MONOCYTES 1.5 thou/uL (0.0-1.2); ABSOLUTE NEUTROPHILS 7.3 thou/uL (1.6-8.1); BASOPHILS 0.8 %; EOSINOPHILS 1.3 %; HEMATOCRIT 32.9 % (37.0-47.0); HEMOGLOBIN 10.9 gm/dL (12.0-15.0); LYMPHOCYTES 11.3 %; MCH 31.4 pg (26.0-34.0); MCHC 33.1 g/dL (28.0-37.0); MONOCYTES 15.1 %; MPV 7.2 fl. (7.2-11.1); NUCLEATED RBCS 0 /100WBC; PLATELET COUNT* 246 thou/uL (150-400); POLYS 71.5 %; RBC 3.47 mil/uL (4.20-5.00); RDW-CV 13.3 % (10.5-14.5); WBC 10.2 thou/uL (4.0-11.0)
[2020-10-27 11:35] LABS: CALCIUM 8.6 mg/dL (8.5-10.1); CREATININE 2.4 mg/dL (0.6-1.3); POTASSIUM 4.7 mmol/L (3.5-5.1)
[2020-10-27 11:37] LABS: APTT 28.6 Seconds (25.0-31.3); INR 1.2; PROTIME 12.4 Seconds (9.20-11.50)
[2020-10-27 11:45] LABS: ALBUMIN 2.8 g/dL (3.4-5.0); MAGNESIUM 1.9 mg/dL (1.8-2.4); TOTAL BILIRUBIN 0.7 mg/dL (<0.1-1.0); TOTAL PROTEIN 6.3 g/dL (6.4-8.2)
[2020-10-27 12:37] LABS: INFLUENZA A ANTIGEN Negative (Negative); INFLUENZA B ANTIGEN Negative (Negative)
--- NOTE | 2020-10-27 16:03 | EKG ---
[place] [address] ELECTROCARDIOGRAM REPORT Name: JACKELINMALINDA Room: [address] ADM IN M.R.#: [id number] Admission: 10/27/20 Attend Phys: Jabier Mann Discharge: Date of : 45 Date of Service: 10/27/20 1109 Report #: [id number] THIS REPORT FOR: //name// [facility] ED Test Date: 2020-10-27 Test Time: 11:09:14 Pat Name: MALINDA BENÍTEZ Department: Room: [facility] Gender: F Facing Baster: KESHIA : 1945 Requested By: Dex Reyes Order Number: [id number] MD: Matthias Snowden Measurements Intervals [place] Rate: 58 P: 137 [place]: 181 QRS: -21 QRSD: 87 T: 25 QT: 398 QTc: 391 Interpretive Statements Sinus or ectopic atrial rhythm Atrial premature complexes Inferior infarct, old, possible Compared to ECG 07/19/2020 17:19:27 Ectopic atrial rhythm now present Myocardial infarct finding now present Sinus rhythm no longer present Electronically Signed On 10-27-2020 16:03:43 CDT by Matthias Snowden [email or web address] <ELECTRONICALLY SIGNED> By: Matthias Snowden MD, FACC 10/27/20 1603 1109 1109 Matthias Snowden MD, FAC /EPI
[2020-10-28] VITALS (14 sets, daily range): BP systolic 122–175; BP diastolic 48–72
[2020-10-28 03:41] LABS: HEMOGLOBIN 11.3 gm/dL (12.0-15.0); MCH 31.9 pg (26.0-34.0); MCHC 34.2 g/dL (28.0-37.0); MCV 93.5 fL (80.0-100.0); MPV 7.6 fl. (7.2-11.1); NUCLEATED RBCS 0 /100WBC; PLATELET COUNT* 212 thou/uL (150-400); RBC 3.53 mil/uL (4.20-5.00); RDW-CV 13.1 % (10.5-14.5); WBC 9.8 thou/uL (4.0-11.0)
[2020-10-28 04:02] LABS: ALBUMIN 2.7 g/dL (3.4-5.0); CALCIUM 9.4 mg/dL (8.5-10.1); CREATININE 1.5 mg/dL (0.6-1.3); POTASSIUM 4.3 mmol/L (3.5-5.1); TOTAL BILIRUBIN 0.4 mg/dL (<0.1-1.0); TOTAL PROTEIN 6.4 g/dL (6.4-8.2)
[2020-10-28 06:53] LABS: ABSOLUTE LYMPHOCYTES 0.6 thou/uL (0.8-5.3); ABSOLUTE NEUTROPHILS 9.2 thou/uL (1.6-8.1)
[2020-10-28 06:54] LABS: PLATELET ESTIMATE ADEQUATE
--- NOTE | 2020-10-28 11:07 | NUR ---
pt transferred to room 222 via wheelchair with nursing staff all belongings packed and sent with pt and at bedside
--- NOTE | 2020-10-28 11:50 | NUR ---
PT TRANSFERRED TO ROM 218 ON .
[2020-10-29] VITALS: BP 134/46
[2020-10-29 04:00] VITALS: BP 147/62
[2020-10-29 04:45] LABS: HEMATOCRIT 29.9 % (37.0-47.0); HEMOGLOBIN 10.1 gm/dL (12.0-15.0); MCH 31.7 pg (26.0-34.0); MCHC 33.7 g/dL (28.0-37.0); MCV 94.1 fL (80.0-100.0); MPV 7.9 fl. (7.2-11.1); RBC 3.18 mil/uL (4.20-5.00); RDW-CV 13.2 % (10.5-14.5); WBC 12.2 thou/uL (4.0-11.0)
[2020-10-29 04:53] LABS: ALBUMIN 2.6 g/dL (3.4-5.0); CALCIUM 8.8 mg/dL (8.5-10.1); CREATININE 1.2 mg/dL (0.6-1.3); POTASSIUM 4.5 mmol/L (3.5-5.1); TOTAL BILIRUBIN 0.2 mg/dL (<0.1-1.0); TOTAL PROTEIN 6.1 g/dL (6.4-8.2)
--- NOTE | 2020-10-29 07:39 | NUR ---
Shift uneventful. Pt aox4, running afib on telemetry, respirations are even and unlabored on room air. On auscultation, heart s1s2, lungs diminished in upper and lower lobes. Pt is medically stable at this time.
[2020-10-29 08:15] VITALS: BP 138/67
[2020-10-29] MEDS ORDERED: ACETAMINOPHEN325 M1 PO (08:41)
[2020-10-29] MEDS ORDERED: ZOFRAN4 MG PO (08:41)
[2020-10-29] MEDS ORDERED: MILK OF MA2400 MG/11 PO (08:41)
[2020-10-29] MEDS ORDERED: PREDNISONE 20 M20 MG PO (08:41)
[2020-10-29] MEDS ORDERED: MELATONIN5 M1 PO (08:41)
[2020-10-29] MEDS ORDERED: BANOPHEN25 MG PO (08:41)
[2020-10-29] MEDS ORDERED: PHENERGAN 25 MG25 M1 PO (08:41)
[2020-10-29] MEDS ORDERED: AMOXIL 875 MG875 M2 PO (08:41)
[2020-10-29] MEDS ORDERED: AZITHROMYCIN500 MG PO (08:41)
[2020-10-29] MEDS ORDERED: COLACE100 MG PO (08:41)
[2020-10-29 14:36] VITALS: BP 138/67
--- NOTE | 2020-10-29 15:20 | NUR ---
PATIENT DISCHARGED TO HOME WITH . IVS TAKEN OUT, HEART MONITOR TAKEN OFF. PATIENT DISCHARGED WITH ALL PERSONAL BELONGINGS, DISCHARGE INSTRUCTIONS, PRESCRIPTION. DISCHARGED BY WHEELCHAIR WITH NURSING STAFF.
== END 2020-10-29 15:00 | disposition home or self-care (01) | DRG 177 ==
LOC: M.ERS 10:53 → M.TBA-ER 12:20 → M.ICU 12:20 → M.2W 10-28 11:11
PROVIDERS: Emergency Medicine Emergency Medical Services; ADMIT Internal Medicine; ATTEND Internal Medicine
DX: J69.0 Pneumonitis due to inhalation of food and vomit (principal); N17.0 Acute kidney failure with tubular necrosis; E43 Unspecified severe protein-calorie malnutrition; J44.1 Chronic obstructive pulmonary disease with (acute) exacerbation; E87.1 Hypo-osmolality and hyponatremia; I95.9 Hypotension, unspecified; E78.00 Pure hypercholesterolemia, unspecified; I10 Essential (primary) hypertension; M47.812 Spondylosis without myelopathy or radiculopathy, cervical region; M54.16 Radiculopathy, lumbar region; G25.81 Restless legs syndrome; E03.9 Hypothyroidism, unspecified; Z20.822 Contact with and (suspected) exposure to COVID-19; Z86.16 Personal history of COVID-19; Z90.49 Acquired absence of other specified parts of digestive tract; Z98.891 History of uterine scar from previous surgery; Z88.5 Allergy status to narcotic agent; Z79.899 Other long term (current) drug therapy; Z79.01 Long term (current) use of anticoagulants; Z87.891 Personal history of nicotine dependence; Z87.01 Personal history of pneumonia (recurrent); Z68.27 Body mass index [BMI] 27.0-27.9, adult

== ENCOUNTER 2020-11-12 16:53 | Inpatient (IN) | payer MEDICARE, OTHER ==
[~2020-11-12] VITALS: Ht 162.6 cm; Wt 75.4 kg
[~2020-11-12 16:53] MED LIST changes: +ACETAMINOPHEN325 M1 PO; +AMOXIL 875 MG875 M2 PO; +AZITHROMYCIN500 MG PO; +BANOPHEN25 MG PO; +COLACE100 MG PO; +ELIQUIS2.5 MG PO; +MELATONIN5 M1 PO; +MILK OF MA2400 MG/11 PO; +PERCOCET 10-321 EAC1 PO; +PHENERGAN 25 MG25 M1 PO; +PREDNISONE 20 M20 MG PO; +VITAMIN D375 MCG PO; +ZOFRAN4 MG PO
[2020-11-12 17:02] VITALS: BP 191/82
[2020-11-12] MEDS ORDERED: COZAAR 25 MG TA25 M1 PO (17:16)
[2020-11-12] MEDS ORDERED: TRELEGY ELLIPT1 EACH INH (17:18)
[2020-11-12] MEDS ORDERED: ANTIBIOTIC (17:21)
[2020-11-12 17:32] LABS: CALCIUM 8.5 mg/dL (8.5-10.1); CREATININE 1.1 mg/dL (0.6-1.3); POTASSIUM 4.2 mmol/L (3.5-5.1)
[2020-11-12 17:37] LABS: ALBUMIN 3.3 g/dL (3.4-5.0); TOTAL BILIRUBIN 0.8 mg/dL (<0.1-1.0); TOTAL PROTEIN 5.9 g/dL (6.4-8.2)
[2020-11-12 17:48] LABS: HEMATOCRIT 35.6 % (37.0-47.0); HEMOGLOBIN 11.8 gm/dL (12.0-15.0); MCHC 33.2 g/dL (28.0-37.0); MCV 93.5 fL (80.0-100.0); MPV 6.9 fl. (7.2-11.1); NUCLEATED RBCS 0 /100WBC; PLATELET COUNT* 123 thou/uL (150-400); RBC 3.81 mil/uL (4.20-5.00); RDW-CV 13.7 % (10.5-14.5); WBC 7.1 thou/uL (4.0-11.0)
[2020-11-12 18:14] LABS: ABSOLUTE LYMPHOCYTES 0.4 thou/uL (0.8-5.3); ABSOLUTE MONOCYTES 0.4 thou/uL (0.0-1.2); ABSOLUTE NEUTROPHILS 6.3 thou/uL (1.6-8.1); PLATELET ESTIMATE DECREASED
[2020-11-12 18:52] LABS: URINE BILIRUBIN NEGATIVE (Negative); URINE BLOOD TRACE (Negative); URINE CLARITY CLEAR; URINE COLOR YELLOW; URINE GLUCOSE-RANDOM NEGATIVE (Negative); URINE KETONES NEGATIVE (Negative); URINE LEUKOCYTES-REFLEX NEGATIVE (Negative); URINE NITRITE-REFLEX NEGATIVE (Negative); URINE PROTEIN 2+ (Negative); URINE UROBILINOGEN 0.2 E.U./dl (0.2-1.0)
[2020-11-12 18:57] LABS: SQUAMOUS 0-3 Few /LPF (0-3)
[2020-11-12 18:58] LABS: BACTERIA-REFLEX None Seen /HPF (None Seen); CASTS None Seen /LPF (None Seen); CRYSTALS None Seen /LPF (None Seen); URINE RBC 3-10 Few /HPF (0-2); URINE WBC-REFLEX 0-5 Rare /HPF (0-5)
[2020-11-12 19:29] VITALS: BP 145/65
[2020-11-12 20:10] VITALS: BP 150/42
[2020-11-12] MEDS ORDERED: PERCOCET 10-321 EAC1 PO (22:15)
--- NOTE | 2020-11-12 23:45 | NUR ---
ASSUMED PATIENT CARE 2129. REVIEWED MED LIST PATIENT ABLE. MESSAGE TO PHYSICIAN REGARDING HOME MEDS. PATIENT AMBULATED TO BR WITH SBA. STEADY GAIT. CONTINUE TO MONITOR.
[2020-11-13 00:02] VITALS: BP 140/58
[2020-11-13 00:10] VITALS: BP 110/48
--- NOTE | 2020-11-13 04:00 | NUR ---
PATIENT HAS REMAINED ALERT AND ORIENTED X 4 THROUGHOUT THE SHIFT AND RESTING QUIETLY ON HOURLY ROUNDS. UP TO BR SBA. NO REPORTED NAUSEA OR VOMITING. MEDICATED FOR PAIN X 1 THIS SHIFT OF THIS WRITING TO GOOD EFFECT. VITAL SIGNS STABLE. SINUS NICA TO SR ON THE MONITOR. CONTINUE TO MONITOR.
[2020-11-13 05:17] VITALS: BP 151/54
[2020-11-13 08:00] VITALS: BP 154/86
--- NOTE | 2020-11-13 09:49 | EKG ---
[place] [address] ELECTROCARDIOGRAM REPORT Name: MALINDA BENÍTEZ Room: [address] ADM IN M.R.#: [id number] Admission: 11/12/20 Attend Phys: Jabier Mann Discharge: Date of : 45 Date of Service: 11/12/20 1729 Report #: [id number] THIS REPORT FOR: //name// [facility] ED Test Date: 2020-11-12 Test Time: 17:29:59 Pat Name: MALINDA BENÍTEZ Department: Room: [facility] Gender: F Web Operations Administrator: SOFIA : 1945 Requested By: Jose R Batista Order Number: [id number] MD: Sawyer Hunt Measurements Intervals [place] Rate: 85 P: 34 SC: 159 QRS: 32 QRSD: 101 T: 46 QT: 370 QTc: 440 Interpretive Statements Sinus rhythm Atrial premature complex Low voltage, precordial leads Baseline wander in lead(s) II,III,aVL,aVF,V5 Compared to ECG 10/27/2020 11:09:14 rate has increased Electronically Signed On 11-13-2020 9:49:47 CDT by Sawyer Hunt [email or web address] <ELECTRONICALLY SIGNED> By: Sawyer Hunt MD, FACC 11/13/20 0949 [id number] Sawyer Hunt MD, [facility] /EPI
[2020-11-13 11:38] VITALS: BP 106/43
--- NOTE | 2020-11-13 16:31 | NUR ---
PT UP IN ROOM WITH STEADY GAIT. O2@2L NC. REPORTS CHRONIC BACK PAIN-MEDS GIVEN ORDERED. NSR ON MONITOR. AT BS AND UPDATED ON PT STATUS. CARDIOLOGY CONSULT THIS AM-NO PLAN FOR CARDIAC WORKUP AT THIS TIME
--- NOTE | 2020-11-13 19:10 | NUR ---
TIZANIDINE GIVEN FOR PAIN.[facility] WILL NOT ALLOW DOCUMENTATION
[2020-11-13 21:00] VITALS: BP 100/46
[2020-11-14] VITALS: BP 101/45
[2020-11-14 04:00] VITALS: BP 161/69
[2020-11-14 05:55] LABS: CHOLESTEROL 138 mg/dL (<200); HDL CHOLESTEROL 57 mg/dL (>40); LDL CHOLESTEROL 66 mg/dL (<100); TC:HDL 2.4 Ratio (Not establshd); TRIGLYCERIDE 75 mg/dL (<150); TROPONIN-I LEVEL <0.06 ng/mL (<0.06); VLDL 15 mg/dL (<40)
[2020-11-14 06:04] LABS: SERUM ASSESSMENT Clear
--- NOTE | 2020-11-14 06:40 | NUR ---
Alert and oriented x 4. She is up independently in room. She is voiding well. Vitals are stable. She has a good O2 sat on 2L n/c. She has chronic back pain on the left. Heart monitor is SR with PACs and afib at times. She does have a history of afib. She did sleep well.
[2020-11-14 08:00] VITALS: BP 123/41
[2020-11-14 12:00] VITALS: BP 134/44
--- NOTE | 2020-11-14 13:15 | NUR ---
Pt is A&O. Resides at home with , in room at bedside. Pt is independent. Hx of covsurinder, pt was dc to home last year with home o2 through [employer], per Pt, she only needed it for about 2 weeks and they have since picked it up. Pt has a neb. Pt uses a cane for mobility PRN. Hx of [facility]. No hx of SNF. Goal is home at dc, no needs anticipated.
[2020-11-14 17:13] VITALS: BP 134/44
--- NOTE | 2020-11-14 20:33 | NUR ---
1600 - patient to be d/c today, dr coming to put in orders. IV taken out, environmental monitoring specialist off. has all personal belongings, d/c papers and education will be given. will be taken out by wheelchair and nursing staff.
--- NOTE | 2020-11-15 13:38 | CON ---
[address] [address] CONSULTATION Name: MALINDA BENÍTEZ Room: [address] IN M.R.#: [id number] Admission: 11/12/20 Attend Phys: Spike Barnhart Discharge: 11/14/20 Date of : 45 Report #: [id number] THIS REPORT FOR: cc: Pranay Alegre Steve T. DO Blick, David R. MD [facility] ~ DATE OF SERVICE: 11/13/2020 CARDIOLOGY CONSULTATION HISTORY OF PRESENT ILLNESS: The patient is a 75-year-old white female who I was asked to see in the hospital today after she complained of being short of breath. The patient has an extensive and complicated past medical history. She apparently has a history of atrial fibrillation and apparently was cardioverted at [facility] in the past. She denies a history of coronary artery disease. Since she was cardioverted years ago, she has had no recurrent atrial fibrillation by history. She continues to see a supervisor seaming at [facility]. She is not sure whether she ever had a stress test. She has a history of smoking, quit 20 years ago. She currently has a history of COPD and uses inhalers at home. She was just admitted here to [facility] 2 weeks ago with an exacerbation of her COPD and possible aspiration pneumonia. She is not very active at this time. She has a history of DVT of her left leg and is on Eliquis. The patient states she received her second dose of the COVID-19 vaccine 2 days ago. Yesterday, she felt more short of breath. She has nausea and vomiting. Her brought her to the hospital. She is admitted for further evaluation and treatment. She denied any chest pain, palpitations, syncope or medical noncompliance. PAST MEDICAL HISTORY: She apparently has had previous brain surgery for an aneurysm at [facility] years ago. She has had previous resection of a rib. She has had a . She has a history of hypertension. No history of diabetes or hyperlipidemia. CURRENT MEDICATIONS: Include losartan, she uses inhaler, Requip, Synthroid, Lipitor for high cholesterol, Eliquis and clonazepam. She had a previous breast augmentation. ALLERGIES: SHE HAS AN ALLERGY TO CODEINE. FAMILY HISTORY: Her sister apparently had a heart transplant. SOCIAL HISTORY: She is and lives with her in [place], [place] [address] CONSULTATION Name: MALINDA BENÍTEZ Room: [address]#: [id number] Admission: 11/12/20 Attend Phys: Spike Barnhart Discharge: 11/14/20 Date of : 45 Report #: [id number] REVIEW OF SYSTEMS: No history of a stroke, liver disease, kidney disease, cancer, psychiatric illness or chronic skin condition. PHYSICAL EXAMINATION: GENERAL: Revealed an elderly female lying in bed. She appeared in no acute distress. VITAL SIGNS: She had a blood pressure of 140/60, pulse is 80 and she is afebrile. HEENT: She was anicteric. Conjunctivae pink. Mucous membranes moist. NECK: Veins do not appear distended. No carotid bruits. Neck supple. CHEST: Clear to auscultation. CARDIOVASCULAR: Regular rate and rhythm without murmurs. ABDOMEN: Soft. EXTREMITIES: Had no edema. Dorsalis pedis pulse 2+ bilaterally. SKIN: Cool and dry. NEUROLOGIC: Nonfocal. LABORATORY DATA: ECG on admission showed a sinus rhythm with no significant ST or T-wave changes. Her workup, she actually had an echocardiogram done in July that showed ejection fraction of 60% with no significant valvular abnormality. Her x-ray in the Emergency Room last night showed interstitial infiltrates suggesting pneumonitis, some atelectasis, no effusions. Her lab work, sodium 136 and creatinine 1.1. Liver function studies were normal. Albumin 3.3. Troponin was 0.09, it maverick to 0.31. Her white blood cell count 7.1 and hematocrit 35.6. Her COVID antigen stat test was negative. Urinalysis, 2+ protein. IMPRESSION AND RECOMMENDATIONS: 1. Borderline elevation of troponin. No history of coronary artery disease. No history of angina. No ECG changes. Suspect related to pulmonary infection. I would not recommend stress testing nor cardiac catheterization at this time. 2. History of atrial fibrillation. Currently in sinus rhythm. The patient is anticoagulated because of her history of deep venous thrombosis. 3. Chronic anticoagulation secondary to previous deep venous thrombosis. 4. Hypertension. The patient is on ARB. 5. Hyperlipidemia. The patient is on a statin drug. 6. Chronic obstructive pulmonary disease. 7. Pneumonitis. 8. Chronic back pain. The patient has received epidurals in the past. 9. History of atrial fibrillation. No clinical recurrences. <ELECTRONICALLY SIGNED> By: Sawyer Hunt MD, FACC 11/15/20 1338 0908 2020Davispike Hunt MD, FACC /nt
== END 2020-11-14 17:40 | disposition home or self-care (01) | DRG 177 ==
LOC: M.ERS 16:53 → M.TBA-ER 18:12 → M.2W 18:12
PROVIDERS: Internal Medicine Cardiovascular Disease; Physician Assistant; ADMIT Internal Medicine; ATTEND Internal Medicine
DX: J69.0 Pneumonitis due to inhalation of food and vomit (principal); I21.9 Acute myocardial infarction, unspecified; I25.10 Atherosclerotic heart disease of native coronary artery without angina pectoris; I10 Essential (primary) hypertension; E78.5 Hyperlipidemia, unspecified; G89.29 Other chronic pain; M54.9 Dorsalgia, unspecified; J44.9 Chronic obstructive pulmonary disease, unspecified; Z20.822 Contact with and (suspected) exposure to COVID-19; Z90.49 Acquired absence of other specified parts of digestive tract; Z86.718 Personal history of other venous thrombosis and embolism; Z88.5 Allergy status to narcotic agent; Z98.891 History of uterine scar from previous surgery; Z79.01 Long term (current) use of anticoagulants; Z79.899 Other long term (current) drug therapy; Z87.891 Personal history of nicotine dependence; Z86.16 Personal history of COVID-19

== ENCOUNTER → 2020-11-16 | Outpatient (CLI) | payer MEDICARE, OTHER ==
[~2020-11-16] MED LIST changes: +ANTIBIOTIC
== END ==
LOC: M.CT 11-14 11:30
DX: M51.37 Other intervertebral disc degeneration, lumbosacral region (principal); M47.816 Spondylosis without myelopathy or radiculopathy, lumbar region; M48.061 Spinal stenosis, lumbar region without neurogenic claudication; M25.78 Osteophyte, vertebrae; I73.9 Peripheral vascular disease, unspecified; J98.4 Other disorders of lung; M47.814 Spondylosis without myelopathy or radiculopathy, thoracic region

== ENCOUNTER → 2020-11-24 | Outpatient (CLI) | payer MEDICARE, OTHER ==
[~2020-11-24] MED LIST changes: +ALBUTEROL2.5 MG/31 INH; +COZAAR 25 MG TA25 M2 PO; +LAXATIVE5 M1 PO; +LIDODERM1 EACH TRANSDERM; +NEURONTIN 300M300 M2 PO; +PULMICORT0.5 MG/2 M INH; +STOOL SOFTENER100 MG PO; +TESSALON PERLE100 M1 PO
== END ==
LOC: M.PC 08:22
PROVIDERS: ATTEND Anesthesiology Pain Medicine
DX: J44.9 Chronic obstructive pulmonary disease, unspecified (principal); M54.16 Radiculopathy, lumbar region; I48.91 Unspecified atrial fibrillation; M47.812 Spondylosis without myelopathy or radiculopathy, cervical region; I10 Essential (primary) hypertension; I82.402 Acute embolism and thrombosis of unspecified deep veins of left lower extremity; E03.9 Hypothyroidism, unspecified; E78.00 Pure hypercholesterolemia, unspecified; G25.81 Restless legs syndrome; Z86.16 Personal history of COVID-19

== ENCOUNTER → 2020-12-22 | Outpatient (CLI) | payer BC ==
[~2020-12-22] MED LIST changes: +METHADONE HCL5 MG PO
== END | disposition home or self-care (01) ==
LOC: M.PC 08:46
PROVIDERS: ATTEND Anesthesiology Pain Medicine
DX: M54.16 Radiculopathy, lumbar region (principal); G89.29 Other chronic pain; I10 Essential (primary) hypertension; E78.00 Pure hypercholesterolemia, unspecified; E03.9 Hypothyroidism, unspecified; I48.91 Unspecified atrial fibrillation; J44.9 Chronic obstructive pulmonary disease, unspecified; G25.81 Restless legs syndrome; Z98.890 Other specified postprocedural states; Z79.899 Other long term (current) drug therapy; Z79.01 Long term (current) use of anticoagulants; Z90.49 Acquired absence of other specified parts of digestive tract; Z20.822 Contact with and (suspected) exposure to COVID-19; Z88.6 Allergy status to analgesic agent; Z87.891 Personal history of nicotine dependence

== ENCOUNTER 2021-01-08 10:40 | Emergency (ER) | payer BC ==
[~2021-01-08] VITALS: Ht 162.6 cm; Wt 71.2 kg
[2021-01-08] MEDS ORDERED: VENTOLIN HFA 1818 GM INH (12:09)
[2021-01-08] MEDS ORDERED: PREDNISONE 20 M20 M1 PO (12:09)
[2021-01-08] MEDS ORDERED: ZPAK PO (12:09)
[2021-01-08 12:16] VITALS: BP 160/65
== END 2021-01-08 12:16 | disposition home or self-care (01) ==
LOC: M.ERS 10:40
DX: J44.1 Chronic obstructive pulmonary disease with (acute) exacerbation (principal); I10 Essential (primary) hypertension; I48.91 Unspecified atrial fibrillation; Z98.890 Other specified postprocedural states; Z88.5 Allergy status to narcotic agent; Z90.49 Acquired absence of other specified parts of digestive tract

== ENCOUNTER 2021-02-17 09:20 | Emergency (ER) | payer BC ==
[~2021-02-17] VITALS: Ht 162.6 cm; Wt 70.3 kg
[~2021-02-17 09:20] MED LIST changes: +PREDNISONE 20 M20 M1 PO; +VENTOLIN HFA 1818 GM INH; +ZPAK PO
[2021-02-17 12:34] VITALS: BP 151/70
== END 2021-02-17 12:35 | disposition home or self-care (01) ==
LOC: M.ERS 09:20
DX: M79.651 Pain in right thigh (principal); J44.9 Chronic obstructive pulmonary disease, unspecified; I10 Essential (primary) hypertension; I48.91 Unspecified atrial fibrillation; Z90.49 Acquired absence of other specified parts of digestive tract; Z98.890 Other specified postprocedural states; Z79.899 Other long term (current) drug therapy; Z88.5 Allergy status to narcotic agent

== ENCOUNTER → 2021-02-28 | Outpatient (CLI) | payer BC ==
[~2021-02-28] MED LIST changes: +MORPHINE SULFAT15 MG PO; +MS CONTIN15 MG PO
== END | disposition home or self-care (01) ==
LOC: M.PC 02-21 09:10
PROVIDERS: ATTEND Anesthesiology Pain Medicine
DX: M54.16 Radiculopathy, lumbar region (principal); G89.29 Other chronic pain; I10 Essential (primary) hypertension; E03.9 Hypothyroidism, unspecified; E78.00 Pure hypercholesterolemia, unspecified; J44.9 Chronic obstructive pulmonary disease, unspecified; I48.91 Unspecified atrial fibrillation; Z98.890 Other specified postprocedural states; Z79.899 Other long term (current) drug therapy; Z90.49 Acquired absence of other specified parts of digestive tract; Z79.01 Long term (current) use of anticoagulants; Z20.822 Contact with and (suspected) exposure to COVID-19

== ENCOUNTER → 2021-04-11 | Outpatient (CLI) | payer BC | LOC: M.ULTRA 09:00 | DX: T14.8XXA Other injury of unspecified body region, initial encounter (principal); M79.89 Other specified soft tissue disorders; R60.0 Localized edema; X58.XXXA Exposure to other specified factors, initial encounter; Y93.89 Activity, other specified; Y92.89 Other specified places as the place of occurrence of the external cause; Y99.8 Other external cause status ==

== ENCOUNTER → 2021-05-09 | Outpatient (CLI) | payer BC ==
[~2021-05-09] MED LIST changes: +PERCOCET 10-321 EACH PO
== END ==
LOC: M.PC 09:04
PROVIDERS: ATTEND Anesthesiology Pain Medicine
DX: G25.81 Restless legs syndrome (principal); M54.16 Radiculopathy, lumbar region; E03.9 Hypothyroidism, unspecified; E78.00 Pure hypercholesterolemia, unspecified; J44.9 Chronic obstructive pulmonary disease, unspecified; I10 Essential (primary) hypertension; I82.402 Acute embolism and thrombosis of unspecified deep veins of left lower extremity